=== PATIENT | female | born 1935 | race Two or more races ===

== ENCOUNTER 2017-09-21 16:40 | Inpatient (IN) | payer OTHER ==
[~2017-09-21] VITALS: Ht 157.5 cm; Wt 64.0 kg
--- NOTE | 2017-09-21 16:50 | NUR ---
BIB [facility] C/O SOB X 2 DAYS, WORSENING YESTERDAY. PATIENT GIVEN BREATHING TX EN ROUTE. A/OX 2, BREATHING EVEN AND UNLABORED ON 5L OXYGEN VIA NC. NO DISTRESS NOTED, SAFETY AND COMFORT MEASURES IN PLACE. AWAITING MD ORDERS.
--- NOTE | 2017-09-21 17:15 | NUR ---
SECOND IV STARTED ON LFA, 18G. BLOOD DRAWN AND SENT TO LAB.
[2017-09-21 17:29] LABS: BASOPHILS % (AUTO) 0.3 % (0.0-2.0); EOSINOPHILS % (AUTO) 0.2 % (0.0-6.0); HEMATOCRIT 30 % (33-45); HEMOGLOBIN 10.5 g/dL (11.5-14.8); LYMPHOCYTES # (AUTO) 0.7 /CMM (0.8-4.8); LYMPHOCYTES % (AUTO) 37.9 % (20.0-44.0); MEAN CORPUSCULAR HEMOGLOBIN 30 PG (26.0-33.0); MEAN CORPUSCULAR HGB CONC 36 g/dl (31.0-36.0); MEAN CORPUSCULAR VOLUME 85 fL (82-100); MONOCYTES % (AUTO) 1.4 % (2.0-12.0); NEUTROPHILS # (AUTO) 1.2 /CMM (1.8-8.9); NEUTROPHILS % (AUTO) 60.2 % (43.0-81.0); PLATELET COUNT (AUTO) 138 /CMM (150-450); RDW COEFFICIENT OF VARIATION 16.6 (11.5-15.0); RED BLOOD CELL COUNT(AUTO) 3.47 MIL/uL (4.0-5.2)
[2017-09-21] MEDS ORDERED: IV NS 0.9% 500 ML BAG IV ONE (17:30)
[2017-09-21] MEDS ORDERED: ASPIRIN 81 MG TAB.CHEW PO ONE (17:30)
[2017-09-21] MEDS ORDERED: NITROGLYCERIN 0.4 MG/TAB BOTTLE SL ONE (17:30)
[2017-09-21 17:34] LABS: WHITE BLOOD COUNT (AUTO) 1.9 K/uL (4.3-11.0)
[2017-09-21 17:38] LABS: CALCIUM, SERUM 9.2 mg/dL (8.5-10.1); CARBON DIOXIDE 28 mmol/L (21-32); CHLORIDE 105 mmol/L (98-107); CREATININE 1.1 mg/dL (0.6-1.3); GLUCOSE 207 mg/dL (74-106); POTASSIUM 4.3 mmol/L (3.5-5.1); SODIUM SERUM 139 mmol/L (136-145); UREA NITROGEN, BLOOD 29 mg/dL (7-18)
[2017-09-21] MEDS ORDERED: NITROGLYCERIN 0.4 MG/TAB BOTTLE ONE (17:42)
[2017-09-21] MEDS ORDERED: ASPIRIN 81 MG TAB.CHEW ONE (17:42)
[2017-09-21] MEDS ORDERED: ASPI-1169 PO (17:43)
[2017-09-21] MEDS ORDERED: ATEN50TA PO (17:43)
[2017-09-21 17:47] LABS: TROPONIN I 0.147 ng/mL (0.00-0.056)
[2017-09-21 17:51] LABS: ALANINE AMINOTRANSFERASE 27 U/L (12-78); ALKALINE PHOSPHATASE 85 U/L (46-116); ASPARTATE AMINOTRANSFERASE 28 U/L (15-37); B-TYPE NATRIURETIC PEPTIDE 12611 PG/ML (0-125); BILIRUBIN,DIRECT 0.5 mg/dL (0.0-0.2); TOTAL PROTEIN, SERUM 7.3 g/dL (6.4-8.2)
[2017-09-21 18:12] LABS: ABG BASE EXCESS 0.3 mmol/L; ABG PCO2 45.1 mmHg (35.0-45.0); ABG PH 7.374 (7.350-7.450); ABG PO2 65.7 mmHg (75.0-100.0); AaDO2 167.6 mmHg; COHb 0.9 % (0.5-1.5); MetHb 0.4 % (0.0-1.5); O2Hb 89.8 % (94.0-97.0); SITE, ABG Right Radial
--- NOTE | 2017-09-21 18:21 | NUR ---
CALLED NURSING SUP. FOR CHIQUI BED
[2017-09-21] MEDS ORDERED: ZOLPIDEM TARTRATE 5 MG TABLET PO PRN (18:30)
[2017-09-21] MEDS ORDERED: HYDROCODONE/APAP 5/325MG 1 EACH TABLET PO PRN (18:30)
[2017-09-21] MEDS ORDERED: MAGNESIUM HYDROXIDE 30 ML UDC PO PRN (18:30)
[2017-09-21] MEDS ORDERED: MORPHINE SULFATE INJ 2 MG/ML DISP.SYRIN IV PRN (18:30)
[2017-09-21] MEDS ORDERED: MAG HYDROX/AL HYDROX/SIMETH 30 ML UDC PO PRN (18:30)
[2017-09-21] MEDS ORDERED: FUROSEMIDE 20 MG/2 ML VIAL ONE (18:38)
[2017-09-21 18:44] LABS: BAND % (MANUAL) 6 % (0.0-5.0); LYMPHOCYTES % (MANUAL) 36 % (16-48); MONOCYTES % (MANUAL) 2 % (0-11.0); NEUTROPHILS % (MANUAL) 56 (42-76)
[2017-09-21] MEDS ORDERED: FUROSEMIDE 20 MG/2 ML VIAL IV ONE (19:00)
--- NOTE | 2017-09-21 19:16 | NUR ---
CHIQUI 120-2 FOR NSTEMI AND RESP. FAILURE, LAURENT HAM ADMITTING
--- NOTE | 2017-09-21 19:35 | NUR ---
REPORT GIVEN TO REESE IVERSON FOR AILEEN.
--- NOTE | 2017-09-21 20:45 | NUR ---
VETERINARIAN POULTRY NOTES RECEIVED PATIENT FROM ER VIA JANINE. PATIENT AWAKE, ALERT AND ORIENTED X2-3, SLOVENIAN SPEAKING, FAMILY AT BEDSIDE ABLE TO TRANSLATE MOZAMBICAN/SLOVENIAN. SLOVENIAN APEAKING STAFF ALSO AT BEDSIDE TO AID IN TRANSLATION. BREATHING IS EVEN AND SLIGHTLY LABORED WHILE O2 VIA NONREBREATHER MASK AT 3 LITERS. PATIENT SWITCHED TO NASAL CANNULA AT 5 LITERS DISCUSSED IN REPORT FROM ER NURSE [place], WITH NOTED IMPROVEMENT IN RESPIRATORY STATUS. PLACED ON TELEMETRY MONITORING, REVEALING SINUS RHYTHM, HR = 60BPM AT THIS TIME, SOMETIMES NICOLASA TO 56. IV SITES PATENT AND INTACT, FLUSHED WITH NS, FREE FROM ANY S/S OF INFILTRATION OR PHLEBITIS. SKIN ASSESSED AND DOCUMENTED PER PROTOCOL. DISCUSSED PLAN OF CARE WITH THE PATIENT AND FAMILY MEMBERS, BOTH VERBALIZING UNDERSTANDING. CALL LIGHT WITHIN EASY REACH, BED IN LOWEST AND LOCKED POSITION. WILL CONTINUE TO CLOSELY MONITOR
[2017-09-21 20:56] VITALS: BP 174/95
--- NOTE | 2017-09-21 21:26 | NUR ---
1950 NED HAM CALLED AND GAVE ORDERS FOR ASPIRIN 81MG AND NITROGLYCERIN .4MG FOR PATIENT. ORDER NOTED AND CARRIED OUT.
[2017-09-21 21:30] VITALS: BP 157/78
[2017-09-21] MEDS ORDERED: NITROGLYCERIN 0.4 MG/TAB BOTTLE SL PRN (21:30)
[2017-09-21] MEDS ORDERED: DEXTROSE 50%-WATER 50 ML DISP.SYRIN IV PRN (23:30)
[2017-09-21] MEDS ORDERED: *INSULIN REGULAR(HUMULIN R)HUM 100 UNIT/ML VIAL SQ PRN (23:30)
[2017-09-21] MEDS ORDERED: hydrALAZINE HCL IV 20 MG VIAL IV PRN (23:30)
--- NOTE | 2017-09-21 23:35 | NUR ---
0017 NED HAM CALLED WITH ORDERS TO COLLECT URINE FOR U/A AND C/S, AND TO FOLLOW UP ON STAT PRO CALCITONIN ORDER. ZAYRA DOS SANTOS NOTIFIED
[2017-09-22] VITALS (7 sets, daily range): BP systolic 117–160; BP diastolic 58–70
--- NOTE | 2017-09-22 00:15 | NUR ---
RN NOTES RECEIVED CALL FROM LAURENT CAMP COOK REGARDING CXR RESULTS. RESULTS RELAYED. LAURENT ALSO MADE AWARE OF LATEST TROPONIN RESULT OF 0.221, TRENDING UP. NO NEW ORDERS RECEIVED AT THIS TIME
[2017-09-22] MEDS: AZITHROMYCIN 500 MG in IV D5W 250 ML IV SCH (00:30)
[2017-09-22] MEDS ORDERED: CEFTRIAXONE 1 G VIAL ONE (00:49)
--- NOTE | 2017-09-22 01:00 | NUR ---
RN NOTES NOTED WITH NEW ORDERS FOR IV ATB. CHARGE NURSE ORQUIDEA ABLE TO OVERRIDE ROCEPHIN, BUT ZITHROMAX UNAVAILABLE. ORDER FAXED TO CLIMATE CHANGE RISK ASSESSOR KAROL, WAITING FOR DELIVERY. WILL ADMINISTER WHEN DRUG AVAILABLE
[2017-09-22] MEDS: CEFTRIAXONE 1 G in IV D5W 50 ML IV SCH ×2 (01:05→23:53)
[2017-09-22] MEDS ORDERED: AZITHROMYCIN 500 MG VIAL ONE (01:46)
[2017-09-22 06:54] LABS: BASOPHILS % (AUTO) 0.7 % (0.0-2.0); CARBON DIOXIDE 30 mmol/L (21-32); CHLORIDE 105 mmol/L (98-107); CREATININE 1.2 mg/dL (0.6-1.3); EOSINOPHILS % (AUTO) 0.5 % (0.0-6.0); GLUCOSE 165 mg/dL (74-106); HEMATOCRIT 30 % (33-45); HEMOGLOBIN 10.5 g/dL (11.5-14.8); LYMPHOCYTES # (AUTO) 0.9 /CMM (0.8-4.8); MAGNESIUM 2.1 mg/dL (1.8-2.4); MEAN CORPUSCULAR HEMOGLOBIN 30 PG (26.0-33.0); MEAN CORPUSCULAR HGB CONC 35 g/dl (31.0-36.0); MEAN CORPUSCULAR VOLUME 87 fL (82-100); MONOCYTES % (AUTO) 1.9 % (2.0-12.0); NEUTROPHILS # (AUTO) 1.1 /CMM (1.8-8.9); NEUTROPHILS % (AUTO) 51.9 % (43.0-81.0); PHOSPHORUS 3.9 mg/dL (2.5-4.9); PLATELET COUNT (AUTO) 135 /CMM (150-450); RDW COEFFICIENT OF VARIATION 17.1 (11.5-15.0); RED BLOOD CELL COUNT(AUTO) 3.49 MIL/uL (4.0-5.2); SODIUM SERUM 141 mmol/L (136-145); UREA NITROGEN, BLOOD 28 mg/dL (7-18); WHITE BLOOD COUNT (AUTO) 2.1 K/uL (4.3-11.0)
--- NOTE | 2017-09-22 07:00 | NUR ---
RN CLOSING NOTES PATIENT RESTING COMFORTABLY IN BED. FOELY CATHETER REMAINS IN PLACE, DRAINING CLEAR URINE TO GRAVITY. WILL ENDORSE THE PATIENT TO THE AM SHIFT NURSE FOR CONTINUITY OF CARE
[2017-09-22 07:04] LABS: CHOLESTEROL 152 mg/dL (<200); HDL CHOLESTEROL 39 mg/dL (40-60); LDL 97 mg/dL (0-99); TRIGLYCERIDES 115 mg/dL (30-150)
--- NOTE | 2017-09-22 07:15 | NUR ---
RN INITIAL NOTES: REC'D PT AWAKE ON BED, NOT IN ANY DISTRESS, A/O X 2-3, DIVEHI SPEAKING. ON NC/5LPM, NO SOB. ON TELEMONITOR, SR 61 BPM. HAS 2 IV LINE ACCESS: LFA G28 & R HAND G20, SL, BOTH PATENT & INTACT, NO S/SX OF INFECTION/INFILTRATION NOTED. HAS FC DRAINING TO BSB W/ YELLOWISH URINE OUTPUT. PROVIDED COMFORT & SAFETY MEASURES. BED KEPT LOW & IN LOCKED POS. CALL LIGHT PLACED W/IN REACH. WILL CONT TO MONITOR & ATTEND PT NEEDS.
[2017-09-22] MEDS: PANTOPRAZOLE 40 MG TABLET.DR PO SCH (08:20)
[2017-09-22] MEDS: ASPIRIN 81 MG TAB.CHEW PO SCH (08:21)
[2017-09-22] MEDS: CARVEDILOL 3.125 MG TABLET PO SCH ×2 (08:22→21:18)
[2017-09-22] MEDS: FUROSEMIDE 40 MG/4 ML VIAL IV SCH ×2 (08:23→12:30)
[2017-09-22] MEDS: VALSARTAN 80 MG TABLET PO SCH (08:24)
[2017-09-22] MEDS: ENOXAPARIN SODIUM 30 MG/0.3 ML DISP.SYRIN SQ SCH (08:24)
[2017-09-22] MEDS: BLOOD SUGAR DIAGNOSTIC 1 EACH STRIP IN SCH ×4 (08:28→21:18)
[2017-09-22] MEDS: INSULIN REGULAR, HUMAN 100 UNIT/ML 3 ML VIAL SQ PRN ×3 (08:31→17:21)
[2017-09-22 08:57] LABS: THYROID STIMULATING HORMONE 38.978 uIU/mL (0.358-3.74)
[2017-09-22] MEDS ORDERED: HEPARIN SODIUM, PORCINE 5000 UNITS/1 ML VIAL SQ SCH (09:00)
[2017-09-22] MEDS ORDERED: ASPIRIN 81 MG TAB.CHEW PO SCH (09:00)
[2017-09-22 15:20] LABS: APPEARANCE,URINE CLEAR (CLEAR); BILIRUBIN,URINE NEGATIVE (NEGATIVE); BLOOD, URINE 2+ Ery/uL (NEGATIVE); COLOR,URINE YELLOW (YELLOW); KETONES,URINE NEGATIVE (NEGATIVE); LEUKOCYTE ESTERASE ,URINE NEGATIVE (NEGATIVE); NITRITE, URINE NEGATIVE (NEGATIVE); PH,URINE 5.5 (5.0-8.0); PROTEIN,URINE NEGATIVE (NEGATIVE); UGLUCOSE NEGATIVE (NEGATIVE); UROBILINOGEN,URINE 0.2 EU/dL (0.2)
[2017-09-22 15:27] LABS: BACTERIA,URINE Rare /HPF (None Seen); SQUAMOUS EPITHELIAL CELL,UR Rare /HPF (None Seen); WBC,URINE 0-2 /HPF (0-3)
[2017-09-22] MEDS ORDERED: FUROSEMIDE 40 MG/4 ML VIAL IV SCH (17:30)
--- NOTE | 2017-09-22 18:36 | NUR ---
RN CLOSING NOTES: NO ACUTE CHANGES NOTED W/IN SHIFT. PT TOLERATED NC/2LPM, NO SOB. ON TELEMONITOR, STILL SR/SB. 2 IV LINE ACCESS: LFA G28 & R HAND G20, SL, BOTH KEPT PATENT & INTACT, NO S/SX OF INFECTION/INFILTRATION NOTED. FC KEPT PATENT & INTACT DRAINING TO BSB. KEPT WELL RESTED. NEEDS ATTENDED. BED KEPT LOW & IN LOCKED POS. CALL LIGHT PLACED W/IN REACH. WILL ENDORSE TO PM RN FOR AILEEN.
--- NOTE | 2017-09-22 19:15 | NUR ---
NAVAL ARCHITECT SPECIALIST NOTE RECEIVED PT AOX2-3 SPEECH CLEAR, GUATEMALAN SPEAKING, SON AT BEDSIDE, ON TELE SR, NO S/SX OF CARDIAC OR RESPIRATORY DISTRESS, ON 2L NC, F/C DRAINING TO GRAVITY. LFA #18G AND R HAND #20G SL, BOTH SITES PATENT FLUSHING WELL, SITES CDI. SKIN KEPT CLEAN AND DRY. SAFETY MAINTAINED AT ALL TIMES, BED IN LOCKED, LOW POSITION, CALL LIGHT WITHIN REACH, WILL CONTINUE TO MONITOR FOR ANY CHANGES IN CONDITION.
[2017-09-22] MEDS: LEVOTHYROXINE SODIUM 25 MCG TABLET PO SCH (19:24)
--- NOTE | 2017-09-22 19:40 | NUR ---
BEATER HEAD NOTE PT PICKED UP FOR CT SCAN W/O CONTRAST
--- NOTE | 2017-09-22 19:51 | NUR ---
STUDENT ACTIVITIES DIRECTOR NOTE PT BACK FROM CT SCAN, NO S/SX OF ACUTE DISTRESS, RESTING COMFORTABLY IN BED.
[2017-09-22] MEDS: ATORVASTATIN 10 MG TABLET PO SCH (21:17)
[2017-09-23] VITALS: BP 118/64
[2017-09-23] MEDS: AZITHROMYCIN 500 MG in IV D5W 250 ML IV SCH (00:34)
[2017-09-23 04:00] VITALS: BP 152/67
[2017-09-23 06:11] LABS: BASOPHILS % (AUTO) 0.2 % (0.0-2.0); EOSINOPHILS % (AUTO) 1.5 % (0.0-6.0); HEMATOCRIT 31 % (33-45); HEMOGLOBIN 10.6 g/dL (11.5-14.8); LYMPHOCYTES # (AUTO) 1.1 /CMM (0.8-4.8); LYMPHOCYTES % (AUTO) 56.1 % (20.0-44.0); MEAN CORPUSCULAR HEMOGLOBIN 30 PG (26.0-33.0); MEAN CORPUSCULAR HGB CONC 35 g/dl (31.0-36.0); MEAN CORPUSCULAR VOLUME 87 fL (82-100); MONOCYTES % (AUTO) 1.7 % (2.0-12.0); NEUTROPHILS # (AUTO) 0.8 /CMM (1.8-8.9); NEUTROPHILS % (AUTO) 40.5 % (43.0-81.0); PLATELET COUNT (AUTO) 131 /CMM (150-450); RDW COEFFICIENT OF VARIATION 17.5 (11.5-15.0); RED BLOOD CELL COUNT(AUTO) 3.55 MIL/uL (4.0-5.2)
[2017-09-23 06:22] LABS: WHITE BLOOD COUNT (AUTO) 1.9 K/uL (4.3-11.0)
--- NOTE | 2017-09-23 06:23 | NUR ---
RN NOTE RECEIVED CALL FROM LAB CRITICAL LAB VALUE WBC 1.9, NOTIFIED PRIMARY NURSE PHILLIP
--- NOTE | 2017-09-23 06:25 | NUR ---
BUDGET REPORT CLERK NOTE CALL TO DR LARIOS TO REPORT CRITICAL LAB AWAITING CALL BACK
[2017-09-23 06:31] LABS: ALANINE AMINOTRANSFERASE 20 U/L (12-78); ALBUMIN 3.4 g/dL (3.4-5.0); ALKALINE PHOSPHATASE 68 U/L (46-116); ASPARTATE AMINOTRANSFERASE 15 U/L (15-37); BILIRUBIN,TOTAL 1.3 mg/dL (0.2-1.0); CALCIUM, SERUM 8.7 mg/dL (8.5-10.1); CARBON DIOXIDE 31 mmol/L (21-32); CHLORIDE 101 mmol/L (98-107); CREATININE 1.2 mg/dL (0.6-1.3); GLUCOSE 135 mg/dL (74-106); MAGNESIUM 1.9 mg/dL (1.8-2.4); PHOSPHORUS 3.7 mg/dL (2.5-4.9); POTASSIUM 3.6 mmol/L (3.5-5.1); SODIUM SERUM 141 mmol/L (136-145); TOTAL PROTEIN, SERUM 6.8 g/dL (6.4-8.2); UREA NITROGEN, BLOOD 31 mg/dL (7-18)
[2017-09-23 06:45] LABS: C-REACTIVE PROTEIN 3.8 mg/dL (0.0-0.9)
--- NOTE | 2017-09-23 06:55 | NUR ---
LEADED GLASS INSTALLER NOTE CALL BACK FROM DR LARIOS, NO NEW ORDERS FOR PATIENT
--- NOTE | 2017-09-23 07:20 | NUR ---
VENDING MACHINE COIN COLLECTOR OPENING NOTES: PT AWAKE ON BED, NOT IN ANY DISTRESS, A/O X 2-3, ARABIC SPEAKING. ON NC/2LPM, NO SOB. ON TELEMONITOR, SR 68 BPM. HAS 2 IV LINE ACCESS: LFA G28 & R HAND G20, SL, BOTH PATENT & INTACT, NO S/SX OF INFECTION/INFILTRATION NOTED. HAS FC DRAINING CLEAR YELLOW URINE .BED IS IN LOW & IN LOCKED POS.SRX3. CALL LIGHT PLACED W/IN REACH. WILL CONTINUE TO MONITOR.
[2017-09-23 08:00] VITALS: BP 140/68
[2017-09-23] MEDS: BLOOD SUGAR DIAGNOSTIC 1 EACH STRIP IN SCH ×4 (08:08→22:16)
[2017-09-23] MEDS: VALSARTAN 80 MG TABLET PO SCH (08:24)
[2017-09-23] MEDS: LEVOTHYROXINE SODIUM 25 MCG TABLET PO SCH (08:26)
[2017-09-23] MEDS: PANTOPRAZOLE 40 MG TABLET.DR PO SCH (08:26)
[2017-09-23 08:27] LABS: BAND % (MANUAL) 2 % (0.0-5.0); EOSINOPHILS % (MANUAL) 4 % (0-4); LYMPHOCYTES % (MANUAL) 55 % (16-48); MONOCYTES % (MANUAL) 3 % (0-11.0); NEUTROPHILS % (MANUAL) 34 (42-76); REACTIVE LYMPHOCYTES 2 % (0-0)
[2017-09-23] MEDS: ASPIRIN 81 MG TAB.CHEW PO SCH (08:27)
[2017-09-23] MEDS: CARVEDILOL 3.125 MG TABLET PO SCH ×2 (08:27→21:59)
[2017-09-23 08:30] VITALS: BP 140/68
[2017-09-23] MEDS: ENOXAPARIN SODIUM 30 MG/0.3 ML DISP.SYRIN SQ SCH (08:30)
[2017-09-23] MEDS: INSULIN REGULAR, HUMAN 100 UNIT/ML 3 ML VIAL SQ PRN ×4 (08:36→22:22)
[2017-09-23] MEDS ORDERED: BUMETANIDE INJ 8 MG in IV NS 0.9% 48 ML IV ONE (09:00)
--- NOTE | 2017-09-23 15:51 | NUR ---
RN NOTES SEEN BY NED BERMNA ,MADE AWARE ABOUT ALL THE ABNORMAL LABS.SHE SAID ONCOLOGY WILL FOLLOW UP.SON WAS AT THE BEDSIDE WANT TO TALK TO MADE AWARE.TALKED TO THE FAMILY WITH THE HELP OF THE TRANSISTOR.ANSWERED ALL THE QUESTIONS.PT WORK WITH PATIENT ABLE TO WALK WITH WALKER.NEED STANDBY ASSISTANCE.
[2017-09-23 16:00] VITALS: BP 135/62
[2017-09-23] MEDS ORDERED: LACTOBACILLUS RHAMNOSUS GG 1 EACH CAP.SPRINK PO SCH (17:00)
--- NOTE | 2017-09-23 19:20 | NUR ---
TWO WAY RADIO INSTALLER NOTE RECEIVED PT AOX2-3 SPEECH CLEAR, GUINEAN SPEAKING, NO S/SX OF CARDIAC OR RESPIRATORY DISTRESS, ON 2L NC, F/C DRAINING TO GRAVITY. LFA #18G AND R HAND #20G SL, BOTH SITES PATENT FLUSHING WELL, SITES CDI. SKIN KEPT CLEAN AND DRY. SAFETY MAINTAINED AT ALL TIMES, BED IN LOCKED, LOW POSITION, CALL LIGHT WITHIN REACH, WILL CONTINUE TO MONITOR FOR ANY CHANGES IN CONDITION.
--- NOTE | 2017-09-23 19:20 | NUR ---
CONTINUOUS DRYOUT OPERATOR HELPER SHIFT END NOTES: PT AWAKE ON BED, NOT IN ANY DISTRESS, A/O X 2-3, CZECH SPEAKING. ON NC/2LPM, NO SOB. ON TELEMONITOR, SR 64 BPM. HAS 2 IV LINE ACCESS: LFA G28 & R HAND G20, SL, BOTH PATENT & INTACT, NO S/SX OF INFECTION/INFILTRATION NOTED. HAS FC DRAINING CLEAR YELLOW URINE .BED IS IN LOW & IN LOCKED POS.SRX3. CALL LIGHT PLACED W/IN REACH.ONCOLOGY WILL FOLLOW UP FOR ABNORMAL LABS.ENDORSED TO PM NURSE FOR AILEEN.
[2017-09-23 20:00] VITALS: BP 160/68
[2017-09-23] MEDS: ATORVASTATIN 10 MG TABLET PO SCH (21:59)
[2017-09-23] MEDS: AZITHROMYCIN 250 MG TABLET PO SCH (21:59)
[2017-09-24] MEDS: CEFTRIAXONE 1 G in IV D5W 50 ML IV SCH (00:04)
[2017-09-24 07:03] LABS: ALANINE AMINOTRANSFERASE 17 U/L (12-78); ALBUMIN 3.4 g/dL (3.4-5.0); ALKALINE PHOSPHATASE 72 U/L (46-116); ASPARTATE AMINOTRANSFERASE 14 U/L (15-37); BILIRUBIN,TOTAL 1.2 mg/dL (0.2-1.0); CALCIUM, SERUM 8.9 mg/dL (8.5-10.1); CARBON DIOXIDE 35 mmol/L (21-32); CHLORIDE 99 mmol/L (98-107); CREATININE 1.2 mg/dL (0.6-1.3); GLUCOSE 133 mg/dL (74-106); MAGNESIUM 1.8 mg/dL (1.8-2.4); PHOSPHORUS 4.1 mg/dL (2.5-4.9); POTASSIUM 3.5 mmol/L (3.5-5.1); SODIUM SERUM 141 mmol/L (136-145); UREA NITROGEN, BLOOD 35 mg/dL (7-18)
--- NOTE | 2017-09-24 07:30 | NUR ---
MS RN AM NOTE RECEIVED PT AOX2-3 SPEECH CLEAR, LATVIAN SPEAKING, NO S/SX OF CARDIAC OR RESPIRATORY DISTRESS, ON 2L NC, F/C DRAINING TO GRAVITY. LFA #18G AND R HAND #20G SL, BOTH SITES PATENT FLUSHING WELL, SITES CDI. SKIN KEPT CLEAN AND DRY. SAFETY MAINTAINED AT ALL TIMES, BED IN LOCKED, LOW POSITION, CALL LIGHT WITHIN REACH, WILL CONTINUE TO MONITOR FOR ANY CHANGES IN CONDITION.
[2017-09-24 07:45] LABS: BASOPHILS % (AUTO) 1.2 % (0.0-2.0); HEMATOCRIT 33 % (33-45); HEMOGLOBIN 11.5 g/dL (11.5-14.8); LYMPHOCYTES # (AUTO) 1.2 /CMM (0.8-4.8); LYMPHOCYTES % (AUTO) 59.5 % (20.0-44.0); MEAN CORPUSCULAR HEMOGLOBIN 30 PG (26.0-33.0); MEAN CORPUSCULAR HGB CONC 35 g/dl (31.0-36.0); MEAN CORPUSCULAR VOLUME 85 fL (82-100); MONOCYTES % (AUTO) 2.2 % (2.0-12.0); NEUTROPHILS # (AUTO) 0.6 /CMM (1.8-8.9); NEUTROPHILS % (AUTO) 34.1 % (43.0-81.0); PLATELET COUNT (AUTO) 136 /CMM (150-450); RDW COEFFICIENT OF VARIATION 16.1 (11.5-15.0); RED BLOOD CELL COUNT(AUTO) 3.87 MIL/uL (4.0-5.2)
[2017-09-24 08:00] VITALS: BP 152/65
[2017-09-24] MEDS ORDERED: LIDOCAINE 1% INJ 50 ML MDV IJ ONE (08:00)
[2017-09-24 08:09] LABS: IMMUNOGLOBULIN A, SERUM 133 mg/dL (64-422); IMMUNOGLOBULIN G, SERUM 867 mg/dL (700-1600); IMMUNOGLOBULIN M, SERUM 65 mg/dL (26-217)
[2017-09-24 08:19] LABS: WHITE BLOOD COUNT (AUTO) 1.9 K/uL (4.3-11.0)
[2017-09-24] MEDS: ENOXAPARIN SODIUM 30 MG/0.3 ML DISP.SYRIN SQ SCH (09:00)
[2017-09-24] MEDS: BLOOD SUGAR DIAGNOSTIC 1 EACH STRIP IN SCH ×4 (09:07→21:18)
[2017-09-24] MEDS: ASPIRIN 81 MG TAB.CHEW PO SCH (09:08)
[2017-09-24] MEDS: CARVEDILOL 3.125 MG TABLET PO SCH ×2 (09:08→21:18)
[2017-09-24] MEDS: VALSARTAN 80 MG TABLET PO SCH (09:08)
[2017-09-24] MEDS: PANTOPRAZOLE 40 MG TABLET.DR PO SCH (09:08)
[2017-09-24] MEDS: LEVOTHYROXINE SODIUM 75 MCG TABLET PO SCH (09:08)
--- NOTE | 2017-09-24 09:14 | NUR ---
MS RN NOTES ACCUCHECK. BS 187 MG/DL. 4 UNITS HUM R GIVEN PER SS.
[2017-09-24] MEDS: INSULIN REGULAR, HUMAN 100 UNIT/ML 3 ML VIAL SQ PRN ×3 (09:17→16:56)
--- NOTE | 2017-09-24 09:30 | NUR ---
MS RN NOTES DUE MEDS GIVEN
[2017-09-24 10:32] LABS: BAND % (MANUAL) 1 % (0.0-5.0); EOSINOPHILS % (MANUAL) 2 % (0-4); LYMPHOCYTES % (MANUAL) 57 % (16-48); MONOCYTES % (MANUAL) 6 % (0-11.0); NEUTROPHILS % (MANUAL) 34 (42-76)
[2017-09-24] MEDS: POTASSIUM CHLORIDE 20 MEQ TAB.PRT.SR PO SCH ×3 (10:55→13:23)
[2017-09-24] MEDS: FUROSEMIDE 100 MG/10 ML VIAL IV SCH ×3 (10:55→17:25)
[2017-09-24 12:26] LABS: INR 0.98 (0.87-1.13)
[2017-09-24] MEDS: CYANOCOBALAMIN 1,000 MCG/ML VIAL IM SCH (12:29)
--- NOTE | 2017-09-24 12:36 | NUR ---
MS RN NOTES ACCUCHECK. BS 192 MG/DL. 4 UNITS HUM R GIVEN PER SS.
--- NOTE | 2017-09-24 14:34 | NUR ---
MS RN NOTES US TECH AND FAMILY AT BEDSIDE. CONSENT SIGNED FOR US GUIDED THORACENTESIS LEFT.
--- NOTE | 2017-09-24 15:28 | NUR ---
MELONY RN NOTES S/P US GUDED THORACENTESIS, LEFT, 600 ML OUT STAT CXR ORDERED
[2017-09-24 16:00] VITALS: BP 100/59
--- NOTE | 2017-09-24 16:50 | NUR ---
MS RN NOTES ACCUCHECK. BS 177 MG/DL. 4 UNITS HUM R GIVEN PER SS.
--- NOTE | 2017-09-24 18:43 | NUR ---
MS RN CLOSING NOTE PT RESTING IN BED, AOX2-3 SPEECH CLEAR, SYRIAC SPEAKING, NO S/SX OF CARDIAC OR RESPIRATORY DISTRESS, ON 2L NC, F/C DRAINING TO GRAVITY WITH 400 ML OUTPUT. LFA #18G AND R HAND #20G SL, BOTH SITES PATENT FLUSHING WELL, SITES CDI. SKIN KEPT CLEAN AND DRY. SAFETY MAINTAINED AT ALL TIMES, BED IN LOCKED, LOW POSITION, CALL LIGHT WITHIN REACH, ALL NEEDS MET AT THIS TIME. S/P US GUIDED THORACENTESIS, SITE CLEAR.NO BLEEDING. NO OTHER SIGNIFICANT CHANGE IN CONDITION. WILL ENDORSE TO NEXT SHIFT FOR AILEEN.
--- NOTE | 2017-09-24 19:15 | NUR ---
ASSISTANT PROFESSOR OF ARCHAEOLOGY NOTE RECEIVED PT AOX2-3 SPEECH CLEAR, GEORGIAN SPEAKING, SON AT BEDSIDE, NO S/SX OF CARDIAC OR RESPIRATORY DISTRESS, ON 2L NC, F/C DRAINING TO GRAVITY. LFA #18G AND R HAND #20G SL, BOTH SITES PATENT FLUSHING WELL, SITES CDI. SKIN KEPT CLEAN AND DRY. SAFETY MAINTAINED AT ALL TIMES, BED IN LOCKED, LOW POSITION, CALL LIGHT WITHIN REACH, WILL CONTINUE TO MONITOR FOR ANY CHANGES IN CONDITION.
[2017-09-24] MEDS: ACETAMINOPHEN 325 MG TABLET PO PRN (19:48)
[2017-09-24 20:00] VITALS: BP 111/52
[2017-09-24] MEDS: ATORVASTATIN 10 MG TABLET PO SCH (21:17)
[2017-09-24] MEDS: AZITHROMYCIN 250 MG TABLET PO SCH (21:17)
[2017-09-25] MEDS: CEFTRIAXONE 1 G in IV D5W 50 ML IV SCH ×2 (00:11→23:30)
[2017-09-25 04:00] VITALS: BP 104/54
[2017-09-25 07:05] LABS: BASOPHILS % (AUTO) 0.3 % (0.0-2.0); EOSINOPHILS % (AUTO) 0.8 % (0.0-6.0); HEMATOCRIT 39 % (33-45); HEMOGLOBIN 13.3 g/dL (11.5-14.8); LYMPHOCYTES % (AUTO) 64.2 % (20.0-44.0); MEAN CORPUSCULAR HEMOGLOBIN 29 PG (26.0-33.0); MEAN CORPUSCULAR HGB CONC 34 g/dl (31.0-36.0); MEAN CORPUSCULAR VOLUME 86 fL (82-100); MONOCYTES # (AUTO) 0.1 /CMM (0.1-1.30); MONOCYTES % (AUTO) 1.8 % (2.0-12.0); NEUTROPHILS # (AUTO) 1.1 /CMM (1.8-8.9); NEUTROPHILS % (AUTO) 32.9 % (43.0-81.0); PLATELET COUNT (AUTO) 174 /CMM (150-450); RDW COEFFICIENT OF VARIATION 17.1 (11.5-15.0); RED BLOOD CELL COUNT(AUTO) 4.58 MIL/uL (4.0-5.2); WHITE BLOOD COUNT (AUTO) 3.2 K/uL (4.3-11.0)
[2017-09-25 07:17] LABS: ALANINE AMINOTRANSFERASE 15 U/L (12-78); ALBUMIN 3.3 g/dL (3.4-5.0); ALKALINE PHOSPHATASE 81 U/L (46-116); ASPARTATE AMINOTRANSFERASE 21 U/L (15-37); BILIRUBIN,TOTAL 1.3 mg/dL (0.2-1.0); CALCIUM, SERUM 8.8 mg/dL (8.5-10.1); CARBON DIOXIDE 30 mmol/L (21-32); CHLORIDE 99 mmol/L (98-107); GLUCOSE 190 mg/dL (74-106); MAGNESIUM 1.9 mg/dL (1.8-2.4); PHOSPHORUS 3.9 mg/dL (2.5-4.9); POTASSIUM 4.4 mmol/L (3.5-5.1); SODIUM SERUM 138 mmol/L (136-145); TOTAL PROTEIN, SERUM 6.9 g/dL (6.4-8.2); UREA NITROGEN, BLOOD 50 mg/dL (7-18)
--- NOTE | 2017-09-25 07:30 | NUR ---
MS RN AM NOTE RECEIVED PT AOX2-3 SPEECH CLEAR, GEORGIAN SPEAKING, NO S/SX OF CARDIAC OR RESPIRATORY DISTRESS, ON RA, LFA #18G AND R HAND #20G SL, BOTH SITES PATENT FLUSHING WELL, SITES CDI. F/C DRAINING TO GRAVITY.PLS SEE NURSING FLOWSHEET FOR SKIN ISSUES. WILL ASSIST IN TURNING AND REPOSITIONING Q 2 HOURS. PHYSICAL THERAPY TODAY. SKIN KEPT CLEAN AND DRY. SAFETY MAINTAINED AT ALL TIMES, BED IN LOCKED, LOW POSITION, CALL LIGHT WITHIN REACH, WILL CONTINUE TO MONITOR FOR ANY CHANGES IN CONDITION.
--- NOTE | 2017-09-25 07:58 | NUR ---
MS RN NOTES ACCUCHECK. BS 195 MG/DL. 4 UNITS HUM R GIVEN PER SS.
[2017-09-25 08:00] VITALS: BP 142/89
[2017-09-25 08:10] LABS: *SPE A/G RATIO 1.2 (0.7-1.7); *SPE ALBUMIN 3.3 g/dL (2.9-4.4); *SPE ALPHA-1-GLOBULIN 0.2 g/dL (0.0-0.4); *SPE ALPHA-2-GLOBULIN 0.8 g/dL (0.4-1.0); *SPE BETA GLOBULIN 0.8 g/dL (0.7-1.3); *SPE GLOBULIN, TOTAL 2.7 g/dL (2.2-3.9); *SPE M-SPIKE Not Observed g/dL (Not Observed); *SPEGAMMA GLOBULIN 0.9 g/dL (0.4-1.8)
[2017-09-25] MEDS: INSULIN REGULAR, HUMAN 100 UNIT/ML 3 ML VIAL SQ PRN ×3 (08:22→21:28)
[2017-09-25] MEDS: CYANOCOBALAMIN 1,000 MCG/ML VIAL IM SCH (08:23)
[2017-09-25] MEDS: ASPIRIN 81 MG TAB.CHEW PO SCH (08:25)
[2017-09-25] MEDS: LEVOTHYROXINE SODIUM 75 MCG TABLET PO SCH (08:25)
[2017-09-25] MEDS: PANTOPRAZOLE 40 MG TABLET.DR PO SCH (08:25)
[2017-09-25] MEDS: VALSARTAN 80 MG TABLET PO SCH (08:28)
[2017-09-25] MEDS: CARVEDILOL 3.125 MG TABLET PO SCH ×2 (08:29→21:17)
[2017-09-25] MEDS: BLOOD SUGAR DIAGNOSTIC 1 EACH STRIP IN SCH ×4 (08:29→21:27)
[2017-09-25] MEDS: ENOXAPARIN SODIUM 30 MG/0.3 ML DISP.SYRIN SQ SCH (08:34)
--- NOTE | 2017-09-25 09:30 | NUR ---
MS RN NOTES DUE MEDS GIVEN
[2017-09-25] MEDS: NITROGLYCERIN 30 GM TUBE TP SCH ×2 (10:11→21:16)
--- NOTE | 2017-09-25 11:22 | NUR ---
MS RN NOTES ACCUCHECK. BS 124 MG/DL. NO INSULIN COVERAGE.
[2017-09-25 12:00] VITALS: BP 127/51
[2017-09-25 16:00] VITALS: BP 127/51
--- NOTE | 2017-09-25 16:33 | NUR ---
MS RN NOTES ACCUCHECK. BS 202 MG/DL. 8 UNITS HUM R GIVEN PER SS.
--- NOTE | 2017-09-25 18:32 | NUR ---
MS RN CLOSING NOTE PT RESTING IN BED, AOX2-3 SPEECH CLEAR, CHADIAN SPEAKING, NO S/SX OF CARDIAC OR RESPIRATORY DISTRESS, ON RA. F/C DRAINING TO GRAVITY WITH 300 ML OUTPUT. LFA #18G AND R HAND #20G SL, BOTH SITES PATENT FLUSHING WELL, SITES CDI. SKIN KEPT CLEAN AND DRY. SAFETY MAINTAINED AT ALL TIMES, BED IN LOCKED, LOW POSITION, CALL LIGHT WITHIN REACH, ALL NEEDS MET AT THIS TIME. NO OTHER SIGNIFICANT CHANGE IN CONDITION. PM CARE DONE. WILL ENDORSE TO NEXT SHIFT FOR AILEEN.
--- NOTE | 2017-09-25 19:23 | NUR ---
MS RN NOTES RECEIVED PT ON. A/0X2 MACANESE SPEAKING. ON ROOM AIR SATURATING WELL. NO RESPIRATORY DISTRESS NOTED AT THIS TIME. ON F/C DRAINING WELL. IV ACCESS ON LFA G#18 AND RIGHT HAND #20G SALINE LOCK. PATENT AND INTACT. NO REDNESS OR PAIN. HEAD OF BED ELEVATED. BED ALARM ON. SIDE RAILS UP. CALL LIGHT WITHIN REACH. WILL CONTINUE TO MONITOR PT CLOSELY.
[2017-09-25 20:00] VITALS: BP 111/67
[2017-09-25] MEDS: AZITHROMYCIN 250 MG TABLET PO SCH (21:16)
[2017-09-25] MEDS: ATORVASTATIN 10 MG TABLET PO SCH (21:17)
[2017-09-26] VITALS (34 sets, daily range): BP systolic 65–143; BP diastolic 29–99
--- NOTE | 2017-09-26 06:42 | NUR ---
MS RN NOTES NO ACUTE CHANGES NOTED DURING THE SHIFT. PROVIDED COMFORT AND SAFETY. DUE MEDS GIVEN. WILL ENDORSE TO THE AM NURSE FOR AILEEN.
--- NOTE | 2017-09-26 07:00 | NUR ---
MS RN OPENING NOTES RECEIVED REPORT FROM PM RN. A/0X2 MOLDOVAN SPEAKING. ON ROOM AIR SATURATING WELL. NO RESPIRATORY DISTRESS NOTED AT THIS TIME. ON F/C DRAINING CLEAR YELLOW URINE. IV ACCESS ON LFA G#18 AND RIGHT HAND #20G SALINE LOCK. PATENT AND INTACT. NO REDNESS OR PAIN. HEAD OF BED ELEVATED. BED ALARM ON. SIDE RAILS UP. CALL LIGHT WITHIN REACH. BED IS LOCKED AND IN LOW POSITION.WILL CONTINUE TO MONITOR .
[2017-09-26 07:33] LABS: BASOPHILS % (AUTO) 0.9 % (0.0-2.0); EOSINOPHILS % (AUTO) 2.2 % (0.0-6.0); HEMATOCRIT 38 % (33-45); HEMOGLOBIN 12.7 g/dL (11.5-14.8); LYMPHOCYTES # (AUTO) 1.7 /CMM (0.8-4.8); MEAN CORPUSCULAR HEMOGLOBIN 28 PG (26.0-33.0); MEAN CORPUSCULAR HGB CONC 34 g/dl (31.0-36.0); MEAN CORPUSCULAR VOLUME 85 fL (82-100); MONOCYTES # (AUTO) 0.1 /CMM (0.1-1.30); MONOCYTES % (AUTO) 2.4 % (2.0-12.0); NEUTROPHILS % (AUTO) 33.5 % (43.0-81.0); PLATELET COUNT (AUTO) 187 /CMM (150-450); RDW COEFFICIENT OF VARIATION 16.8 (11.5-15.0); RED BLOOD CELL COUNT(AUTO) 4.46 MIL/uL (4.0-5.2); WHITE BLOOD COUNT (AUTO) 2.9 K/uL (4.3-11.0)
[2017-09-26 08:01] LABS: ALANINE AMINOTRANSFERASE 20 U/L (12-78); ALBUMIN 3.4 g/dL (3.4-5.0); ALKALINE PHOSPHATASE 75 U/L (46-116); ASPARTATE AMINOTRANSFERASE 18 U/L (15-37); BILIRUBIN,TOTAL 1.2 mg/dL (0.2-1.0); CALCIUM, SERUM 8.6 mg/dL (8.5-10.1); CARBON DIOXIDE 29 mmol/L (21-32); CHLORIDE 97 mmol/L (98-107); CREATININE 2.5 mg/dL (0.6-1.3); GLUCOSE 188 mg/dL (74-106); MAGNESIUM 2.1 mg/dL (1.8-2.4); PHOSPHORUS 4.9 mg/dL (2.5-4.9); POTASSIUM 4.3 mmol/L (3.5-5.1); SODIUM SERUM 138 mmol/L (136-145); TOTAL PROTEIN, SERUM 6.9 g/dL (6.4-8.2); UREA NITROGEN, BLOOD 68 mg/dL (7-18)
[2017-09-26] MEDS: LEVOTHYROXINE SODIUM 75 MCG TABLET PO SCH (08:21)
[2017-09-26] MEDS: PANTOPRAZOLE 40 MG TABLET.DR PO SCH (08:21)
[2017-09-26] MEDS: ASPIRIN 81 MG TAB.CHEW PO SCH (08:21)
[2017-09-26] MEDS: VALSARTAN 80 MG TABLET PO SCH (08:24)
[2017-09-26] MEDS: CARVEDILOL 3.125 MG TABLET PO SCH ×2 (08:24→21:00)
[2017-09-26] MEDS: CYANOCOBALAMIN 1,000 MCG/ML VIAL IM SCH (08:24)
[2017-09-26] MEDS: BLOOD SUGAR DIAGNOSTIC 1 EACH STRIP IN SCH ×4 (08:25→22:08)
[2017-09-26] MEDS: INSULIN REGULAR, HUMAN 100 UNIT/ML 3 ML VIAL SQ PRN ×2 (08:33→22:18)
[2017-09-26] MEDS: ENOXAPARIN SODIUM 30 MG/0.3 ML DISP.SYRIN SQ SCH (08:34)
[2017-09-26] MEDS: NITROGLYCERIN 30 GM TUBE TP SCH ×2 (08:35→21:00)
[2017-09-26 10:22] LABS: BAND % (MANUAL) 1 % (0.0-5.0); EOSINOPHILS % (MANUAL) 4 % (0-4); LYMPHOCYTES % (MANUAL) 58 % (16-48); MONOCYTES % (MANUAL) 1 % (0-11.0); NEUTROPHILS % (MANUAL) 36 (42-76)
[2017-09-26] MEDS ORDERED: AMIODARONE 150 MG in IV D5W 100 ML IV ONE (12:30)
[2017-09-26] MEDS ORDERED: AMIODARONE 900 MG in IV D5W 482 ML IV PRN (12:30)
--- NOTE | 2017-09-26 12:30 | NUR ---
RN NOTES INSULIN WAS NOT GIVEN.PATIENT DID NOT EAT WELL.
[2017-09-26] MEDS ORDERED: IV NS 0.9% 500 ML IV ONE (13:30)
[2017-09-26] MEDS: IV NS 0.9% 1,000 ML IV PRN (15:59)
[2017-09-26 16:07] LABS: ABG BASE EXCESS 3.8 mmol/L; ABG OXYGEN SATURATION 95.8 % (92.0-98.5); ABG PCO2 39.4 mmHg (35.0-45.0); ABG PH 7.466 (7.350-7.450); ABG PO2 90.4 mmHg (75.0-100.0); AaDO2 62.8 mmHg; COHb 0.7 % (0.5-1.5); MetHb 0.6 % (0.0-1.5); O2Hb 94.6 % (94.0-97.0); SITE, ABG Right Brachial; VENT MODE, BG NASAL CANNULA
[2017-09-26 16:20] LABS: CALCIUM, SERUM 8.4 mg/dL (8.5-10.1); CARBON DIOXIDE 27 mmol/L (21-32); CHLORIDE 100 mmol/L (98-107); CREATININE 2.4 mg/dL (0.6-1.3); GLUCOSE 177 mg/dL (74-106); POTASSIUM 3.9 mmol/L (3.5-5.1); SODIUM SERUM 137 mmol/L (136-145); UREA NITROGEN, BLOOD 68 mg/dL (7-18)
--- NOTE | 2017-09-26 16:40 | NUR ---
CURBSTONE SETTER NOTE RN NOTES 1000:SEEN BY WITH NEW ORDERS.ALL MORNING MEDICATIONS GIVEN,PATIENT IS ALERT .ABLE TO EAT THE BREAKFAST .ABLE TO USE BOTH ARMS .ABLE TO HOLD THE HAND USING. BOTH HANDS.VITAL SIGNS STABLE.WILL CONTINUE TO MONITOR. 1130:SEEN BY WITH NEW ORDERS 1140:PATIENT NOTED MORE LETHARGIC .AND SHE TALKING ,AUSTRIAN.UNABLE TO UNDERSTAND.VITAL SIGNS CHECKED.BP 98/63,HR 62,O2 SAT 96%.CALL MADE TO 3W.NURSE CAME TO TRANSLATE.SHE DENIED CHEST PAIN.FULLY CONNOTE UNDERSTAND WHAT PATIENT EXACTLY SAID.C/O SOME PROBLEM IN THE HEART.PULSE RATE NOTED THAT ITS VARYING.LEFT MESSAGE TO ANTONELLA.ASKED FOR STAT EKG.GOT ORDER.TRANSFERRED PATIENT TO TELE STATUS AND ON TELE MONITOR.RELAYED RESULT TO NED BERMAN.POSITIVE FOR AFIB.WAITING FOR RESPONSE.RELAYED OLD AND NEW EKG RESULT TO .STARTED ON AMIODARONE BOLUS AND DRIP.ADMINISTERED AMIODARONE BOLUS AND DRIP ONGOING.DR.GIBBON Harrison,ZAKI ROMANO ABOUT THE PATIENT CONDITION.POST THORACENTESIS.SEEN BY TOLD THAT RESPIRATORY SIDE IS STABLE.SPOKE TO THE FAMILY.SEEN BY NED BERMAN AT 1450.TOLD THAT WILL ORDER CT SCAN.IVF NS 500 ML BOLUS GIVEN PER NED BERMAN.IN IVF NS 60CC/HR. FAMILY WAS AT THE BED SIDE.PATIENT CONDITION IS NOT GETTING BETTER.NOTED THAT PATIENT HAS DIFFICULTY IN MOVING HER L ARM.NOT USING IT.STROKE ASSESSMENT DONE WITH HELP OF FAMILY MEMBER TO TRANSLATE BUT PATIENT UNABLE TO GRAB WITH L HAND AND L LEG IS MORE WEAK THAN IN THE MORNING.NED BERMAN MADE ROMANO REQUESTED TO CALL CODE STROKE. SHE TOLD DONT WANT TO CALL CODE STROKE .WAITING FOR CT HEAD TO BE DONE.CHANGE CT HEAD ORDER FROM ROUTINE TO STAT.RADIOLOGY MADE AWARE.BRAKE HOLDER MADE AWARE.CALLED RAPID RESPONSE FOR NEW CHANGE OF CONDITION,NED BERMAN WAS AT BED SIDE.CANCELLED RAPID RESPONSE.EXPLAINED THE CONDITION OF THE PATIENT TO THE FAMILY.FAMILY WANT TO KEEP HER FULL CODE.SPOKE TO THE SON. STAT CT HEAD DONE.PATIENT IS MORE WEAK AND LETHARGIC AND NOTED WITH R SIDE OF THE EYE CLOSING WHILE OPEN THE MOUTH .FACIAL DROOPINESS NOTED.SNORING AND BREATHING DIFFICULTY.STAT ABG DONE. NED BERMAN MADE AWARE THAT CT RESULT AVAILABLE.GOT AN ORDER TO TRANSFER TO ICU BECAUSE PATIENT HAD STROKE.ICU NURSE EVALUATED THE PATIENT.TOLD TO TRANSFER TO ICU.TRANSFERRED PATIENT TO ICU.REPORT GIVEN TO NURSE PEÑA.NED BERMAN WAS AT THE BEDSIDE.FAMILY WAS AT BEDSIDE.
[2017-09-26] MEDS ORDERED: NOREPINEPHRINE 16 MG in IV D5W 500 ML IV PRN (17:00)
[2017-09-26] MEDS ORDERED: BLOOD SUGAR DIAGNOSTIC 1 EACH STRIP IN SCH ×2 (18:00→22:00)
--- NOTE | 2017-09-26 18:26 | NUR ---
TRANSFER EDUCATION PROFESSIONAL NOTE RCVD PT WITH EYES OPEN, ABLE TO FOLLOW SIMPLE COMMANDS SUCH LIFT AND SQUEEZE FINGERS WITH RIGHT HAND. LUE AND BLE UNABLE TO OVERCOME GRAVITY. ON RA TOLERATING WELL. KUNZ TO GRAVITY DRAINING CLOUDY, YELLOW URINE. IV SITES C/D/I/PATENT. NO S/O INFILTRATION/PHLEBITIS OBSERVED UPON FLUSHING. IVF INFUSING. ACCUCHECK DONE COVERAGE HELD, PT NPO AT THIS TIME. PT'S SON EDUCATED ON IMPORTANCE TO KEEP PT NPO TO PREVENT ASPIRATION. HOB ELEVATED. ANTONELLA, PROFESSOR OF ENVIRONMENTAL SCIENCE SPOKE WITH PT'S FAMILY REGARDING PT'S PROGNOSIS AND POTENTIAL COMPLICATIONS AT BEDSIDE. PT'S SON ACKNOWLEDGED WHEN INFORMATION WAS TRANSLATED TO HIM IN [place]. PT'S CARE ENDORSED TO TERADATA DEVELOPER RN. BED IN LOW AND LOCKED POSITION. CALL LIGHT WITHIN REACH.
--- NOTE | 2017-09-26 19:30 | NUR ---
RELIEF WORKER INITIAL NOTE RECEIVED PATIENT AWAKE, BURUNDIAN SPEAKING, SON AT BEDSIDE. DENIES PAIN OR DISCOMFORT AT THIS TIME. NOTED WITH CLEAR SPEECH, BUT DELAYED. NO SOB AT THIS TIME. ON ROOM AIR. SKIN WARM AND DRY TO TOUCH . PATIENT ABLE TO FOLLOW COMMANDS. SON ASSISTED WITH TRANSLATION. ON TELE MONITOR AFIB UNCONTROLLED. NOTED PATIENT WITH LEFT SIDED WEAKNESS, PATIENT ABLE TO FEEL PAIN ON LEFT SIDE, WIGGLE TOES, BUT UNABLE TO MOVE. PATIENT ON LEVO AT 2MCG/MIN AND IVF RUNNING. WITH F/C PATENT AND INTACT, DRAINING BY GRAVITY. SIDE RAILS UP AND LOCKED. BED KEPT AT LOWEST POSITION. CALL LIGHT KEPT WITHIN EASY REACH. WILL CONTINUE TO MONITOR.
--- NOTE | 2017-09-26 19:41 | NUR ---
SPOKE WITH RIPRAP WORKER REGARDING PICC LINE, INFORMED PATIENT HAS CONSENT FOR PICC LINE, PER RIPRAP WORKER PICC LINE NURSE WILL BE HERE IN THE MORNING.
[2017-09-26 19:42] LABS: INR 1.01 (0.87-1.13)
--- NOTE | 2017-09-26 20:30 | NUR ---
KAIAWHINA KURA KAUPAPA MAORI NOTE TURNED OFF LEVO AT THIS TIME. SBP >110 AND MAP >65. WILL CONTINUE TO MONITOR.
[2017-09-26] MEDS ORDERED: LEVETIRACETAM (500MG) 500 MG in IV NS 0.9% 100 ML IV SCH (21:00)
--- NOTE | 2017-09-26 21:06 | NUR ---
RN NOTES 1000:SEEN BY WITH NEW ORDERS.ALL MORNING MEDICATIONS GIVEN,PATIENT IS ALERT .ABLE TO EAT THE BREAKFAST .ABLE TO USE BOTH ARMS .ABLE TO HOLD THE HAND USING. BOTH HANDS.VITAL SIGNS STABLE.WILL CONTINUE TO MONITOR. 1130:SEEN BY WITH NEW ORDERS 1140:PATIENT NOTED MORE LETHARGIC .AND SHE TALKING ,KUWAITI.UNABLE TO UNDERSTAND.VITAL SIGNS CHECKED.BP 98/63,HR 62,O2 SAT 96%.CALL MADE TO 3W.NURSE CAME TO TRANSLATE.SHE DENIED CHEST PAIN.FULLY CONNOTE UNDERSTAND WHAT PATIENT EXACTLY SAID.C/O SOME PROBLEM IN THE HEART.PULSE RATE NOTED THAT ITS VARYING.LEFT MESSAGE TO ANTONELLA.ASKED FOR STAT EKG.GOT ORDER.TRANSFERRED PATIENT TO TELE STATUS AND ON TELE MONITOR.RELAYED RESULT TO NED BERMAN.POSITIVE FOR AFIB.WAITING FOR RESPONSE.RELAYED OLD AND NEW EKG RESULT TO .STARTED ON AMIODARONE BOLUS AND DRIP.ADMINISTERED AMIODARONE BOLUS AND DRIP ONGOING.DR.GIBBON Harrison,ZAKI ROMANO ABOUT THE PATIENT CONDITION.POST THORACENTESIS.SEEN BY TOLD THAT RESPIRATORY SIDE IS STABLE.SPOKE TO THE FAMILY.SEEN BY NED BERMAN AT 1450.TOLD THAT WILL ORDER CT SCAN.IVF NS 500 ML BOLUS GIVEN PER NED BERMAN.IN IVF NS 60CC/HR. FAMILY WAS AT THE BED SIDE.PATIENT CONDITION IS NOT GETTING BETTER.NOTED THAT PATIENT HAS DIFFICULTY IN MOVING HER L ARM.NOT USING IT.STROKE ASSESSMENT DONE WITH HELP OF FAMILY MEMBER TO TRANSLATE BUT PATIENT UNABLE TO GRAB WITH L HAND AND L LEG IS MORE WEAK THAN IN THE MORNING.NED BERMAN MADE ROMNAO REQUESTED TO CALL CODE STROKE. SHE TOLD DONT WANT TO CALL CODE STROKE .WAITING FOR CT HEAD TO BE DONE.CHANGE CT HEAD ORDER FROM ROUTINE TO STAT.RADIOLOGY MADE AWARE.CORE LAYING MACHINE OPERATOR MADE AWARE.CALLED RAPID RESPONSE FOR NEW CHANGE OF CONDITION,NED BERMAN WAS AT BED SIDE.CANCELLED RAPID RESPONSE.EXPLAINED THE CONDITION OF THE PATIENT TO THE FAMILY.FAMILY WANT TO KEEP HER FULL CODE.SPOKE TO THE SON. STAT CT HEAD DONE.PATIENT IS MORE WEAK AND LETHARGIC AND NOTED WITH R SIDE OF THE EYE CLOSING WHILE OPEN THE MOUTH .FACIAL DROOPINESS NOTED.SNORING AND BREATHING DIFFICULTY.STAT ABG DONE. NED BERMAN MADE AWARE THAT CT RESULT AVAILABLE.GOT AN ORDER TO TRANSFER TO ICU BECAUSE PATIENT HAD STROKE.ICU NURSE EVALUATED THE PATIENT.TOLD TO TRANSFER TO ICU.TRANSFERRED PATIENT TO ICU.REPORT GIVEN TO NURSE PEÑA.NED BERMAN WAS AT THE BEDSIDE.FAMILY WAS AT BEDSIDE. Addendum: 09/26/17 at 2153 by YAHIR SENA RN WRONG TIME DOCUMENTED
--- NOTE | 2017-09-26 21:17 | NUR ---
DATA ENTRY EMAIL PROCESSOR NOTE FAMILY AT BEDSIDE. SON JOSE G PERALTA WOULD LIKE TO CHANGE CODE STATUS FROM FULL CODE TO DNR/DNI, GRANDDAUGHTER AVA AT BEDSIDE ASSISTING WITH TRANSLATION. PER FAMILY THEY DONT WANT PATIENT TO SUFFER ANY LONGER. CHARGE NURSE INFORMED. MD INFORMED. WILL CONTINUE TO MONITOR.
[2017-09-26] MEDS: ATORVASTATIN 10 MG TABLET PO SCH (21:49)
[2017-09-26] MEDS: HEPARIN SODIUM, PORCINE 5000 UNITS/1 ML VIAL SQ SCH (22:08)
[2017-09-27] VITALS (63 sets, daily range): BP systolic 89–160; BP diastolic 48–92
[2017-09-27] MEDS ORDERED: ACETAMINOPHEN 650 MG/SUPP.RECT RC PRN
--- NOTE | 2017-09-27 00:15 | NUR ---
SENIOR MAJOR GIFTS OFFICER NOTE DID SWALLOW SCREENING FOR PATIENT WITH SON AT BEDSIDE. PATIENT PLACED NINETY DEGREES, PATIENT HAD NO DIFFICULTY SWALLOWING THIN LIQUIDS, NO COUGHING NOTED. MD NOTIFIED. WITH ORDERS OK TO START DIET.
[2017-09-27] MEDS: ACETAMINOPHEN 325 MG TABLET PO PRN (01:35)
[2017-09-27 05:11] LABS: INR 0.98 (0.87-1.13)
[2017-09-27 05:17] LABS: ALANINE AMINOTRANSFERASE 15 U/L (12-78); ALBUMIN 3.2 g/dL (3.4-5.0); ALKALINE PHOSPHATASE 72 U/L (46-116); ASPARTATE AMINOTRANSFERASE 18 U/L (15-37); BILIRUBIN,TOTAL 1.2 mg/dL (0.2-1.0); CALCIUM, SERUM 8.2 mg/dL (8.5-10.1); CARBON DIOXIDE 29 mmol/L (21-32); CHLORIDE 100 mmol/L (98-107); CREATININE 2.1 mg/dL (0.6-1.3); GLUCOSE 152 mg/dL (74-106); PHOSPHORUS 4.1 mg/dL (2.5-4.9); POTASSIUM 3.7 mmol/L (3.5-5.1); SODIUM SERUM 137 mmol/L (136-145); TOTAL PROTEIN, SERUM 6.2 g/dL (6.4-8.2); UREA NITROGEN, BLOOD 68 mg/dL (7-18)
[2017-09-27 05:25] LABS: CHOLESTEROL 120 mg/dL (<200); CREATINE KINASE, TOTAL 43 U/L (26-192); HDL CHOLESTEROL 24 mg/dL (40-60); LDL 72 mg/dL (0-99); TRIGLYCERIDES 181 mg/dL (30-150)
[2017-09-27 06:11] LABS: HEMATOCRIT 34 % (33-45); HEMOGLOBIN 11.6 g/dL (11.5-14.8); LYMPHOCYTES % (AUTO) 63.6 % (20.0-44.0); MEAN CORPUSCULAR HEMOGLOBIN 29 PG (26.0-33.0); MEAN CORPUSCULAR HGB CONC 35 g/dl (31.0-36.0); MEAN CORPUSCULAR VOLUME 85 fL (82-100); MONOCYTES % (AUTO) 2.8 % (2.0-12.0); NEUTROPHILS % (AUTO) 30.2 % (43.0-81.0); PLATELET COUNT (AUTO) 192 /CMM (150-450); RDW COEFFICIENT OF VARIATION 18.2 (11.5-15.0); RED BLOOD CELL COUNT(AUTO) 3.95 MIL/uL (4.0-5.2); WHITE BLOOD COUNT (AUTO) 2.6 K/uL (4.3-11.0)
[2017-09-27 06:12] LABS: EOSINOPHILS % (AUTO) 2.4 % (0.0-6.0)
--- NOTE | 2017-09-27 07:38 | NUR ---
DATAPOWER DEVELOPER CLOSING NOTE NO SIGNIFICANT CHANGE OVERNIGHT. ALL NEEDS ANTICIPATED AND MET. NO SOB NOTED. KEPT CLEAN AND DRY. TURNED AND REPOSITIONED Q2 AND PRN. F/C PATENT AND INTACT, DRAINING BY GRAVITY. HOB ELEVATED. SIDE RAILS UP AND LOCKED. BED KEPT AT LOWEST POSITION. CALL LIGHT KEPT WITHIN EASY REACH. CONTINUITY OF CARE ENDORSED TO AM NURSE.
--- NOTE | 2017-09-27 07:47 | NUR ---
INITIAL FARO DEALER NOTE RCVD PT AWAKE AND ALERT TO SELF, SHOWING NO S/O DISTRESS/PAIN AT THIS TIME. AFIB ON TELE. ON RA TOLERATING WELL. KUNZ TO GRAVITY DRAINING YELLOW URINE. RIGHT IV SITE C/D/I/PATENT. PENDING PICC LINE INSERTION TODAY. OFF PRESSORS, VITAL SIGNS STABLE. PT MONGOLIAN SPEAKING ONLY, COMMUNICATION IS LIMITED. PUPILS PERRLA 3 PERIPHERAL VISION LIMITED ON THE LEFT SIDE. LUE AND LLE APPEAR TO BE FLACCID AND RLE ABLE TO MOVE TOES, RUE PT ABLE TO MAKE FIST AND FOLLOW SIMPLE COMMANDS. WILL CONTINUE TO MONITOR PT FOR SAFETY AND COMFORT. CALL LIGHT WITHIN REACH. BED IN LOW AND LOCKED POSITION.
[2017-09-27] MEDS: BLOOD SUGAR DIAGNOSTIC 1 EACH STRIP IN SCH ×4 (08:05→22:04)
[2017-09-27] MEDS: ASPIRIN 81 MG TAB.CHEW PO SCH (08:05)
[2017-09-27] MEDS: LEVOTHYROXINE SODIUM 75 MCG TABLET PO SCH (08:05)
[2017-09-27] MEDS: NITROGLYCERIN 30 GM TUBE TP SCH ×2 (08:06→21:00)
[2017-09-27] MEDS: IV NS 0.9% 1,000 ML IV PRN (08:06)
[2017-09-27] MEDS: CARVEDILOL 3.125 MG TABLET PO SCH ×3 (08:06→21:00)
[2017-09-27] MEDS: HEPARIN SODIUM, PORCINE 5000 UNITS/1 ML VIAL SQ SCH ×2 (08:09→22:06)
[2017-09-27] MEDS: INSULIN REGULAR, HUMAN 100 UNIT/ML 3 ML VIAL SQ PRN (08:09)
[2017-09-27] MEDS: PANTOPRAZOLE 40 MG VIAL IV SCH (08:40)
[2017-09-27] MEDS ORDERED: ENOXAPARIN SODIUM 30 MG/0.3 ML DISP.SYRIN SQ SCH (09:00)
[2017-09-27] MEDS ORDERED: DIGOXIN INJ 0.5 MG/2 ML AMPUL IV ONE (09:10)
--- NOTE | 2017-09-27 10:48 | NUR ---
FINAL BLOCK PRESS OPERATOR NOTE PER PT'S SON NO MORE PICC LINE, IF ASKED HIM IF WE COULD PLACE A MIDLINE. HE AGREED. DR. NEWELL IN UNIT CHANGED COREG ORDER ASKED HIM ABOUT PERMISSIVE HYPERTENSION HE RECOMMENDED TO KEEP SBP 130-140's. BP MEDICATIONS HELD THIS AM. REQUESTED MEDICATION FOR RATE CONTROL DIGOXIN TO BE GIVEN X3 DOSES. ORDERS ENTERED AND CARRIED OUT. WILL CONTINUE TO MONITOR PT.
[2017-09-27] MEDS: CYANOCOBALAMIN 1,000 MCG/ML VIAL IM SCH (11:48)
[2017-09-27] MEDS: DIGOXIN INJ 0.5 MG/2 ML AMPUL IV SCH ×2 (14:45→22:05)
[2017-09-27 15:35] LABS: APPEARANCE,URINE CLEAR (CLEAR); BILIRUBIN,URINE NEGATIVE (NEGATIVE); BLOOD, URINE NEGATIVE Ery/uL (NEGATIVE); COLOR,URINE YELLOW (YELLOW); KETONES,URINE NEGATIVE (NEGATIVE); LEUKOCYTE ESTERASE ,URINE NEGATIVE (NEGATIVE); NITRITE, URINE NEGATIVE (NEGATIVE); PH,URINE 5.5 (5.0-8.0); PROTEIN,URINE TRACE mg/dl (NEGATIVE); UGLUCOSE NEGATIVE (NEGATIVE); UROBILINOGEN,URINE 0.2 EU/dL (0.2)
[2017-09-27 15:40] LABS: BACTERIA,URINE None seen /HPF (None Seen); RBC,URINE 0-2 /HPF (0-2); SQUAMOUS EPITHELIAL CELL,UR 0-2 /HPF (None Seen); WBC,URINE 0-2 /HPF (0-3)
[2017-09-27 16:09] LABS: CREATININE, URINE 116.7 MG/DL (30.0-125.0); URINE TOTAL PROTEIN 26.9 mg/dL (0-11.9)
--- NOTE | 2017-09-27 16:39 | NUR ---
ALTERNATIVE DISPUTE RESOLUTION MEDIATOR NOTE NED BERMAN IN UNIT ASSESSING PT, UPDATED ON PT'S CONDITION. INFORMED OF VARIED NIHSS SCORES THROUGHOUT THE DAY AND ACKNOWLEDGED. CHANGE NIHSS ASSESSSMENT TO Q SHIFT. PT CLEARED TO LEAVE ICU.
[2017-09-27 17:45] LABS: EOSINOPHIL,URINE None Seen
[2017-09-27 18:58] LABS: HEMOGLOBIN 12.4 g/dL (11.5-14.8); RED BLOOD CELL COUNT(AUTO) 4.28 MIL/uL (4.0-5.2); WHITE BLOOD COUNT (AUTO) 3.6 K/uL (4.3-11.0)
[2017-09-27 18:59] LABS: HEMATOCRIT 37 % (33-45); MEAN CORPUSCULAR HEMOGLOBIN 29 PG (26.0-33.0); MEAN CORPUSCULAR HGB CONC 33 g/dl (31.0-36.0); MEAN CORPUSCULAR VOLUME 87 fL (82-100)
[2017-09-27 19:00] LABS: BASOPHILS % (AUTO) 0.6 % (0.0-2.0); EOSINOPHILS % (AUTO) 1.6 % (0.0-6.0); LYMPHOCYTES # (AUTO) 2.6 /CMM (0.8-4.8); MONOCYTES % (AUTO) 2.7 % (2.0-12.0); NEUTROPHILS # (AUTO) 0.9 /CMM (1.8-8.9); NEUTROPHILS % (AUTO) 24.1 % (43.0-81.0); PLATELET COUNT (AUTO) 143 /CMM (150-450); RDW COEFFICIENT OF VARIATION 18.4 (11.5-15.0)
[2017-09-27 19:01] LABS: MONOCYTES # (AUTO) 0.1 /CMM (0.1-1.30)
--- NOTE | 2017-09-27 19:04 | NUR ---
EPIC CUPID ANALYST NOTE PER DR. NEWELL GIVE PT 3 DOSES OF DIGOXIN 2/3 DOSES GIVEN BUT 2 DOSES PENDING TO BE GIVEN ON MAY. ANMOL, RB INFORMED THAT PT'S MISSING ONLY ONE MORE DOSE OF DIG AND TO HOLD THE FOURTH DOSE. ANMOL ACKNOWLEDGED. ATTEMPTED TO CALL PHARMACY BUT THEY'RE NOT PICKING UP THE PHONE ANY MORE.
--- NOTE | 2017-09-27 19:11 | NUR ---
BUFFING LINE SET UP WORKER NOTE PT REMAINS OFF PRESSORS VITAL SIGNS STABLE, AFIB ON TELE. ON RA TOLERATING WELL. PT AWAKE AND ALERT ABLE TO FOLLOW COMMANDS. KUNZ TO GRAVITY DRAINING YELLOW URINE. IV SITES C/D/I/PATENT. NO S/O INFILTRATION/PHLEBITIS OBSERVED UPON FLUSHING. IVF INFUSING. PT'S CARE ENDORSED TO ABLE BODIED SEAMAN RN FOR CONTINUITY OF CARE. BED IN LOW AND LOCKED POSITION. CALL LIGHT WITHIN REACH. Addendum: 09/27/17 at 1915 by TERESA LORENZANA RN NED BERMAN CONTACTED REGARDING PT'S TROPONIN TRENDING UP. NO NEW ORDERS RCVD. REQUESTED PT'S IVF TO BE CHANGED FROM NS TO D5W, SHE AGREED. ORDER ENTERED AND CARRIED OUT.
[2017-09-27] MEDS: IV D5W 1,000 ML IV PRN (19:20)
--- NOTE | 2017-09-27 19:30 | NUR ---
COLOR FINISHER INITIAL NOTE RECEIVED PATIENT AWAKE ALERT AND ORIENTED. NO S/S OF PAIN OR DISCOMFORT. PATIENT ABLE TO MAKE NEEDS KNOWN, FOLLOWS SIMPLE COMMANDS. NO RESPIRATORY DISTRESS NOTED, ON ROOM AIR. SKIN WARM AND DRY TO TOUCH. ON TELE MONITOR AFIB UNCONTROLLED. PER AM NURSE 3 DOSES OF DIGOXIN WAS ORDERED TO GIVEN AND 2 HAVE ALREADY BEEN GIVEN. F/C PATENT AND INTACT, DRAINING BY GRAVITY. HOB ELEVATED. SIDE RAILS UP AND LOCKED. BED KEPT AT LOWEST POSITION. CALL LIGHT KEPT WITHIN EASY REACH. WILL CONTINUE TO MONITOR.
[2017-09-27 20:09] LABS: BAND % (MANUAL) 1 % (0.0-5.0); EOSINOPHILS % (MANUAL) 1 % (0-4); LYMPHOCYTES % (MANUAL) 59 % (16-48); MONOCYTES % (MANUAL) 5 % (0-11.0); NEUTROPHILS % (MANUAL) 34 (42-76)
[2017-09-27] MEDS: ATORVASTATIN 10 MG TABLET PO SCH (22:00)
[2017-09-28] VITALS (15 sets, daily range): BP systolic 104–155; BP diastolic 49–110
--- NOTE | 2017-09-28 | NUR ---
PHARMACIST TECHNICIAN NOTE BED BATH GIVEN, PATIENT ABLE TO ASSIST MINIMALLY. PICTURES TAKEN, TOLERATED WELL. WILL CONTINUE TO MONITOR.
[2017-09-28] MEDS: DIGOXIN INJ 0.5 MG/2 ML AMPUL IV SCH (03:00)
--- NOTE | 2017-09-28 04:40 | NUR ---
PREVENTIVE MAINTENANCE COORDINATOR NOTE CONTINUITY OF CARE ENDORSED TO CHIQUI RN SCHUYLER
[2017-09-28 05:26] LABS: CALCIUM, SERUM 8.5 mg/dL (8.5-10.1); CREATININE 1.3 mg/dL (0.6-1.3); GLUCOSE 124 mg/dL (74-106); PHOSPHORUS 2.9 mg/dL (2.5-4.9); UREA NITROGEN, BLOOD 47 mg/dL (7-18)
[2017-09-28 05:33] LABS: HEMATOCRIT 30 % (33-45); HEMOGLOBIN 10.3 g/dL (11.5-14.8); MEAN CORPUSCULAR HEMOGLOBIN 29 PG (26.0-33.0); MEAN CORPUSCULAR HGB CONC 34 g/dl (31.0-36.0); MEAN CORPUSCULAR VOLUME 85 fL (82-100); PLATELET COUNT (AUTO) 139 /CMM (150-450); RDW COEFFICIENT OF VARIATION 17.8 (11.5-15.0); RED BLOOD CELL COUNT(AUTO) 3.51 MIL/uL (4.0-5.2); WHITE BLOOD COUNT (AUTO) 1.9 K/uL (4.3-11.0)
[2017-09-28 05:34] LABS: BASOPHILS % (AUTO) 0.5 % (0.0-2.0); EOSINOPHILS % (AUTO) 1.8 % (0.0-6.0); LYMPHOCYTES # (AUTO) 1.3 /CMM (0.8-4.8); LYMPHOCYTES % (AUTO) 68.4 % (20.0-44.0); MONOCYTES # (AUTO) 0.1 /CMM (0.1-1.30); MONOCYTES % (AUTO) 3.6 % (2.0-12.0); NEUTROPHILS # (AUTO) 0.5 /CMM (1.8-8.9); NEUTROPHILS % (AUTO) 25.7 % (43.0-81.0)
[2017-09-28 05:38] LABS: CARBON DIOXIDE 27 mmol/L (21-32); CHLORIDE 102 mmol/L (98-107); SODIUM SERUM 136 mmol/L (136-145)
--- NOTE | 2017-09-28 05:41 | NUR ---
MANAGER INTERMEDIATE NOTE RELAYED CRITICAL LAB VALUE WBC 1.[address] LARIOS WITH NNO
--- NOTE | 2017-09-28 06:10 | NUR ---
CABLE INSTALLATION TECHNICIAN NOTES, AFTER RECEIVED REPORT FROM ANMOL RN, RECEIVED PATIENT FROM ICU IN COMPANY OF 2 RNS VIA BED IN STABLE CONDITION AT THIS TIME, AFIB IN TELE MONITOR IN 70S AT THIS TIME, BREATHING EVEN AND UNLABORED, NO S/S ACUTE DISTRESS/SOB OR ANY DISCOMFORT, ON RA WITH OPTIMAL SATURATION >98% AT THIS TIME, MELIA MIDLINE PATENT AND INTACT, IVF INFUSING WELL ND PATIENT TOLERATED WELL, NOTED WITH LEFT LEF MORE EDEMATOUS THAT RIGHT LEG, AFEBRILE AT THIS TIME, NO S/S OF INFILTRATION NOTED, DRY AND CLEAN AND WELL REPOSITIONED, BED LOCKED AND IN LOWEST POSITION, WILL CONTINUE TO MONITOR CLOSELY AND ENDORSE CONTINUITY OF CARE TO ONCOMING NURSE, VS 125/64, 74, 98.2, 98% RA, 18, 0/10.
--- NOTE | 2017-09-28 06:18 | NUR ---
TENNIS COURT ATTENDANT NOTE PATIENT TRANSFERRED VIA ACLS PROTOCOL IN STABLE CONDITION.
--- NOTE | 2017-09-28 06:20 | NUR ---
TEAM COORDINATOR NOTE INFORMED SON MARYFLORENCIA REGARDING ROOM CHANGE. SON APPRECIATED CALL.
--- NOTE | 2017-09-28 07:15 | NUR ---
RN INITIAL NOTES RECEIVED PT AWAKE, A/OX2. NAMIBIAN SPEAKING ONLY. PT ON ROOM AIR. NO SOB NOTED. HOB ELEVATED. MELIA MIDLINE IN PLACE. IVF INFUSING. FC IN PLACE. NO HEMATURIA NOTED. PT COMFORTABLE. REPOSITIONED. BLE ELEVATED. WILL MONITOR.
[2017-09-28] MEDS: CYANOCOBALAMIN 1,000 MCG/ML VIAL IM SCH (08:36)
[2017-09-28] MEDS: ASPIRIN 81 MG TAB.CHEW PO SCH (08:36)
[2017-09-28] MEDS: CARVEDILOL 3.125 MG TABLET PO SCH ×2 (08:36→21:00)
[2017-09-28] MEDS: HEPARIN SODIUM, PORCINE 5000 UNITS/1 ML VIAL SQ SCH ×2 (08:36→21:30)
[2017-09-28] MEDS: PANTOPRAZOLE 40 MG VIAL IV SCH (08:36)
[2017-09-28] MEDS: LEVOTHYROXINE SODIUM 75 MCG TABLET PO SCH (08:36)
[2017-09-28] MEDS: BLOOD SUGAR DIAGNOSTIC 1 EACH STRIP IN SCH ×4 (08:37→21:26)
[2017-09-28] MEDS: NITROGLYCERIN 30 GM TUBE TP SCH ×3 (09:00→21:28)
--- NOTE | 2017-09-28 09:00 | NUR ---
RN NOTES SEEN AND EXAMINED BY DR NEWELL. AWARE OF CURRENT LAB VALUES AND CXR RESULT. PT'S SBP ON 110S, HR 80S. NO SIGNS OF CARDIAC DISTRESS NOTED. WILL MONITOR.
--- NOTE | 2017-09-28 09:30 | NUR ---
RN NOTES SEEN AND EXAMINED BY DR RO. PT AWAKE, A/O. STILL WITH LEFT SIDED WEAKNESS. NO CHANGE IN LOC NOTED. WILL MONITOR.
--- NOTE | 2017-09-28 10:00 | NUR ---
RN NOTES SEEN AND EXAMINED BY DR JOHNSTON. PT ON ROOM AIR. NO SOB NOTED. HOB ELEVATED. REPOSITIONED. WILL MONITOR.
[2017-09-28 10:32] LABS: LYMPHOCYTES % (MANUAL) 43 % (16-48); MONOCYTES % (MANUAL) 3 % (0-11.0); NEUTROPHILS % (MANUAL) 54 (42-76)
[2017-09-28] MEDS: DIGOXIN 0.25 MG TABLET PO SCH (12:45)
[2017-09-28] MEDS: INSULIN REGULAR, HUMAN 100 UNIT/ML 3 ML VIAL SQ PRN (12:47)
--- NOTE | 2017-09-28 13:00 | NUR ---
RN NOTES SEEN AND EXAMINED BY ANTONELLA PAPPAS NP. AWARE OF CURRENT LAB VALUES: WBC 1.9, HGB 10.3, HCT 30, PLATELET 139. PT FAILED SWALLOW EVAL. WILL TRY AGAIN WILLY. WILL CONTINUE TO MONITOR.
--- NOTE | 2017-09-28 13:38 | NUR ---
Social service consult requested by NED Torres for possible stroke. Pt. is a 81 year old female who was admitted to [facility] for stroke. Pt. is Guatemalan speaking and pt's son was not available bedside. SW discussed with senior case manager Denia. Igor Loza pt. moved from [facility] in 2018. Pt. lives with her son at home. Pt's son Jose is her primary caregiver . Pt. needs assistance with her ADL's. Pt. is alert and oriented and has bouts of confusion at times. Pt. does not have any home health services at this time. Pt's son is requesting SNF placement temporarily. Pt. currently does not have an advance directive. Pt. was referred by senior case manager Denia to [facility] and was accepted. manager of product to follow up with son Jose. No social service needs are required at this time. SW is available, if needed.
[2017-09-28] MEDS: IV D5W 1,000 ML IV PRN (14:32)
--- NOTE | 2017-09-28 18:40 | NUR ---
RN CLOSING NOTES NO CHANGE IN LOC NOTED. NO SIGNIFICANT CHANGE NOTED. KEPT CLEAN AND DRY. KEPT COMFORTABLE. REPOSITIONED Q2. ALL NEEDS ANTICIPATED AND MET. WILL ENDORSE FOR CONTINUITY OF CARE.
--- NOTE | 2017-09-28 20:37 | NUR ---
MACHINE HAND NOTES RECEIVED PT ON BED. A/OX2 TURKISH SPEAKING SON AT BEDSIDE. ON ROOM AIR SATURATING WELL. TELE MONITOR AFIB CONTROLLED 86. PT ON NPO. IV ACCESS ON MELIA MIDLINE D5W @60CC/HR RUNNING WELL AND INTACT. HEAD OF BED ELEVATED. SIDE RAILS UP. CALL LIGHT IS PLACED WITHIN REACH. BED ALARM ON. WILL CONTINUE TO MONITOR PT CLOSELY.
--- NOTE | 2017-09-28 20:44 | NUR ---
MIDDLEWARE ARCHITECT NOTES PT SON REFUSING HIS MOM TO BE TRANSFERRED IN PRIVATE ROOM BEC THE AIR CONDITIONING IS NOT WORKING. PAGED THE ENGINEERING DEPARTMENT. WAITING FOR CALL BACK.
[2017-09-28] MEDS: MORPHINE SULFATE INJ 2 MG/ML DISP.SYRIN IV PRN (21:34)
[2017-09-28] MEDS: ATORVASTATIN 10 MG TABLET PO SCH (21:35)
--- NOTE | 2017-09-28 22:30 | NUR ---
PROFESSOR OF EDUCATION NOTES CALLED DR. LARIOS REGARDING PAIN MEDICATION. ORDERED MORPHINE 2MG IV PUSH PRN Q4H FOR PAIN. ALSO DC ACETAMINOPHEN 625 AND NORCO 5 P.O SINCE PATIENT IS NPO.
[2017-09-29] VITALS (8 sets, daily range): BP systolic 106–166; BP diastolic 56–81
--- NOTE | 2017-09-29 00:13 | NUR ---
CAR ATTENDANT NOTES NITROGLYCERIN PATCH NOT GIVEN. PT ON PERMISSIVE HTN
--- NOTE | 2017-09-29 04:46 | NUR ---
EXECUTIVE DIRECTOR CONTRACT SHOP NOTES PT SLEEPING COMFORTABLE. MORPHINE SULFATE 2MG FOR PAIN NOT GIVEN.
[2017-09-29] MEDS: IV D5W 1,000 ML IV PRN ×2 (05:46→22:43)
[2017-09-29] MEDS: MORPHINE SULFATE INJ 2 MG/ML DISP.SYRIN IV PRN (05:52)
[2017-09-29] MEDS: ONDANSETRON HCL/PF 4 MG/2 ML VIAL IVP PRN ×2 (06:29→13:34)
[2017-09-29 06:30] LABS: CALCIUM, SERUM 8.5 mg/dL (8.5-10.1); CARBON DIOXIDE 27 mmol/L (21-32); CHLORIDE 99 mmol/L (98-107); CREATININE 1.2 mg/dL (0.6-1.3); GLUCOSE 119 mg/dL (74-106); PHOSPHORUS 2.5 mg/dL (2.5-4.9); POTASSIUM 4.1 mmol/L (3.5-5.1); SODIUM SERUM 134 mmol/L (136-145); UREA NITROGEN, BLOOD 34 mg/dL (7-18)
[2017-09-29 07:07] LABS: BASOPHILS % (AUTO) 0.6 % (0.0-2.0); EOSINOPHILS % (AUTO) 2.8 % (0.0-6.0); HEMATOCRIT 31 % (33-45); HEMOGLOBIN 10.9 g/dL (11.5-14.8); LYMPHOCYTES # (AUTO) 1.5 /CMM (0.8-4.8); LYMPHOCYTES % (AUTO) 72.5 % (20.0-44.0); MEAN CORPUSCULAR HEMOGLOBIN 30 PG (26.0-33.0); MEAN CORPUSCULAR HGB CONC 35 g/dl (31.0-36.0); MEAN CORPUSCULAR VOLUME 85 fL (82-100); MONOCYTES # (AUTO) 0.1 /CMM (0.1-1.30); MONOCYTES % (AUTO) 2.8 % (2.0-12.0); NEUTROPHILS # (AUTO) 0.5 /CMM (1.8-8.9); NEUTROPHILS % (AUTO) 21.3 % (43.0-81.0); PLATELET COUNT (AUTO) 146 /CMM (150-450); RDW COEFFICIENT OF VARIATION 16.8 (11.5-15.0); RED BLOOD CELL COUNT(AUTO) 3.66 MIL/uL (4.0-5.2); WHITE BLOOD COUNT (AUTO) 2.2 K/uL (4.3-11.0)
--- NOTE | 2017-09-29 07:25 | NUR ---
TELE CLOSING NOTES NO ACUTE CHANGES NOTED DURING THE SHIFT. PROVIDED COMFORT AND SAFETY. SON UPDATED REGARDING PTS CONDITION. ENDORSED TO THE AM NURSE FOR AILEEN.
[2017-09-29] MEDS: LEVOTHYROXINE SODIUM 75 MCG TABLET PO SCH (07:30)
[2017-09-29] MEDS: BLOOD SUGAR DIAGNOSTIC 1 EACH STRIP IN SCH ×4 (07:59→21:37)
[2017-09-29] MEDS: INSULIN REGULAR, HUMAN 100 UNIT/ML 3 ML VIAL SQ PRN ×4 (08:06→21:47)
[2017-09-29] MEDS: ASPIRIN 81 MG TAB.CHEW PO SCH (08:43)
[2017-09-29] MEDS: CARVEDILOL 3.125 MG TABLET PO SCH (08:44)
[2017-09-29] MEDS: NITROGLYCERIN 30 GM TUBE TP SCH ×2 (08:45→21:37)
[2017-09-29] MEDS: PANTOPRAZOLE 40 MG VIAL IV SCH (09:11)
[2017-09-29] MEDS: CYANOCOBALAMIN 1,000 MCG/ML VIAL IM SCH (09:12)
[2017-09-29] MEDS: HEPARIN SODIUM, PORCINE 5000 UNITS/1 ML VIAL SQ SCH ×2 (09:12→21:39)
[2017-09-29] MEDS: DIGOXIN 0.25 MG TABLET PO SCH (13:00)
[2017-09-29 14:12] LABS: *SPE A/G RATIO 1.3 (0.7-1.7); *SPE ALBUMIN 3.3 g/dL (2.9-4.4); *SPE ALPHA-1-GLOBULIN 0.2 g/dL (0.0-0.4); *SPE ALPHA-2-GLOBULIN 0.8 g/dL (0.4-1.0); *SPE BETA GLOBULIN 0.8 g/dL (0.7-1.3); *SPE GLOBULIN, TOTAL 2.5 g/dL (2.2-3.9); *SPE M-SPIKE Not Observed g/dL (Not Observed); *SPEGAMMA GLOBULIN 0.7 g/dL (0.4-1.8)
[2017-09-29] MEDS: DIGOXIN INJ 0.5 MG/2 ML AMPUL IV SCH (14:57)
--- NOTE | 2017-09-29 18:19 | NUR ---
SON AT BEDSIDE. TURNED AND REPOSITIONED FOR COMFORT. ON O2 AT 2L NC. OCCASIONALLY APPEARS TO BE SHORT OF BREATH AND GOES AWAY. ALSO NOTED TO DRY HEAVE AT TIMES AND THEN GOES BACK TO SLEEP. KEPT NPO UNABLE TO PASS SWALLOW EVAL PER SPEECH THERAPIST. BLOOD SUGARS MONITORED. KUNZ CATH DRAINING CLEAR YELLOW URINE. BED LOW AND LOCKED. CALL LIGHT WITHIN REACHED. WILL CONT TO MONITOR.
--- NOTE | 2017-09-29 19:15 | NUR ---
RN M/S NOTE PATIENT IS AOX2, NORWEGIAN SPEAKING, RESTING COMFORTABLY WITH HOB ELEVATED, ON REVERSE ISOLATION PRECAUTIONS, ON 2L O2 VIA NC, NO S/SX OF RESPIRATORY OR CARDIAC DISTRESS, ON TELE AFIB/AFLUTTER 68, F/C DRAINING TO GRAVITY, SKIN IS DRY, MELIA MIDLINE WITH D5W AT 60 ML/HR, PATENT, FLUSHING WELL, SITE CDI. NPO, SAFETY MAINTAINED AT ALL TIMES, BED IN LOW LOCKED POSITION, CALL LIGHT WITHIN REACH, WILL CONTINUE TO MONITOR FOR ANY CHANGES IN CONDITION.
[2017-09-29] MEDS: ATORVASTATIN 10 MG TABLET PO SCH (21:38)
--- NOTE | 2017-09-29 23:45 | NUR ---
[place] TRANSPORTATION DRIVER NOTES, RECEIVED PATIENT FROM SWATHI IVERSON FOR CONTINUATION OF CARE, PATIENT BREATHING EVEN AND UNLABORED, NO SOB/ACUTE DISTRESS AT THIS TIME, ON REVERSE ISOLATION, ALL Addendum: 09/30/17 at 0108 by SCHUYLER VALADEZ RN FOR NEUTROPENIC PRECAUTIONS, WILL CONTINUE TO MONITOR CLOSELY.
[2017-09-30] VITALS (8 sets, daily range): BP systolic 104–167; BP diastolic 55–86
[2017-09-30] MEDS: IV D5W 1,000 ML IV PRN ×2 (06:04→17:21)
--- NOTE | 2017-09-30 06:43 | NUR ---
CONE MACHINE OPERATOR CLOSING NOTES, PATIENT AWAKE AT THIS TIME, BREATHING EVEN AND UNLABORED NO S/S OF PAIN OR DISCOMFORT NOTED AT THIS TIME, AFIB IN THE TELE MONITOR, MELIA MIDLINE PATENT AND INTACT, IVF INFUSING WELL AND PATIENT TOLERATING WELL, CONTINUE NPO AT THIS TIME, NO SIGNIFICANT CHANGE IN CONDITION DURING THIS SHIFT, ALL NEEDS PROVIDED, WILL ENDORSE CONTINUITY OF CARE TO ONCOMING NURSE. ,
[2017-09-30] MEDS: INSULIN REGULAR, HUMAN 100 UNIT/ML 3 ML VIAL SQ PRN ×4 (07:30→21:24)
[2017-09-30] MEDS: LEVOTHYROXINE SODIUM 75 MCG TABLET PO SCH (07:30)
[2017-09-30] MEDS: BLOOD SUGAR DIAGNOSTIC 1 EACH STRIP IN SCH ×4 (07:33→21:24)
[2017-09-30] MEDS: ASPIRIN 81 MG TAB.CHEW PO SCH (09:00)
[2017-09-30] MEDS ORDERED: Z GUARD REMEDY 2 OZ OINT TP PRN (09:00)
[2017-09-30] MEDS: HEPARIN SODIUM, PORCINE 5000 UNITS/1 ML VIAL SQ SCH ×3 (09:00→21:08)
--- NOTE | 2017-09-30 09:01 | NUR ---
WOUND CARE CONSULT: PT PRESENTS WITH SACRAL SCARRING AND CURRENT LOVELY SCORE OF 11. PT ON LARISA ISOFLEX LOW AIRLOSS BED. ALL SKIN PROTECTION RECOMMENDATIONS DISCUSSED WITH NURSING STAFF. WILL SEE PRN. SANTOS IN AGREEMENT WITH PLAN OF CARE. Addendum: 09/30/17 at 0902 by JANETTE OVALLES WNDNU Amended: Links added.
--- NOTE | 2017-09-30 09:52 | NUR ---
RN NOTES: HEPARIN DC TO BE CLARIFIED WITH DR NEWELL. DOSE HELD FOR NOW
[2017-09-30] MEDS: PANTOPRAZOLE 40 MG VIAL IV SCH (09:57)
[2017-09-30] MEDS: CYANOCOBALAMIN 1,000 MCG/ML VIAL IM SCH (10:01)
[2017-09-30] MEDS: NITROGLYCERIN 30 GM TUBE TP SCH ×2 (11:19→21:01)
--- NOTE | 2017-09-30 11:32 | NUR ---
NITROGLYCERIN PATCH HELD- BP AT 104/55 HR OF 84 NO FACIAL GRIMACING DENYING CHEST PAIN NONLABORED BREATHING NOTED ON ROOM AIR
[2017-09-30 12:17] LABS: PTH, INTACT 122 pg/mL (15-65)
--- NOTE | 2017-09-30 13:46 | NUR ---
DR ASHTON NOTIFIED ALSO THAT PEG PLANS CANCELLED. NO CURRENT PLAN FOR PEG INSERTION DR ASHTON UPDATED REGARDING SWALLOW EVALUATION PER HIS ORDERS, DEFER TO DR NEWELL ABOUT HEPARIN DOSAGE
--- NOTE | 2017-09-30 13:50 | NUR ---
HEPARIN SUBC AM DOSE HELD DUE TO POSSIBLE PLAN OF PEG INSERTION. DR ASHTON NOTIFIED NOTIFIED DR ASHTON THAT PO MEDS HELD DUE TO PATIENT BEING NPO
--- NOTE | 2017-09-30 13:50 | NUR ---
HEPARIN SUBC AM DOSE HELD DUE TO POSSIBLE PLAN OF PEG INSERTION. DR ASHTON NOTIFIED
--- NOTE | 2017-09-30 14:00 | NUR ---
DR ASHTON NOTIFIED THAT PATIENT UNABLE TO TAKE PO MEDS. PER HIS ORDERS, MONITOR AND ASSESS FOR ORAL INTAKE TODAY OK TO SWITCH TO SYNTHROID IV IF PATIENT UNABLE TO SWALLOW BY TOMORROW VERBAL READBACK DONE
[2017-09-30] MEDS: DIGOXIN INJ 0.5 MG/2 ML AMPUL IV SCH (14:02)
--- NOTE | 2017-09-30 14:09 | NUR ---
PER DR ASHTON - ESOPHAGRAM
--- NOTE | 2017-09-30 14:20 | NUR ---
PER DR NEWELL, JANA TO CONTINUE GIVING CURRENT PROPHYLAXIS DOSAGE OF HEPARIN VERBAL READBACK DONE
--- NOTE | 2017-09-30 15:00 | NUR ---
TELE DISCONTINUED BY DR NEWELL . ATRIAL FIBRILLATION NOTED THIS AM 75 HR
--- NOTE | 2017-09-30 15:01 | NUR ---
NO ORDERS FROM MD YET TO CONTACT GI FOR POSSIBLE PEG INSERTION
--- NOTE | 2017-09-30 17:08 | NUR ---
NO SIGNS OF ALLERGIC REACTIONS NOTED AFTER ESOPHAGRAM NONLABORED BREATHING NOTED. NO FACIAL GRIMACING NOTED DENYING PAIN AT THE MOMENT
[2017-09-30] MEDS: Z GUARD REMEDY 2 OZ OINT TP SCH (17:21)
--- NOTE | 2017-09-30 18:13 | NUR ---
DR ASHTON NOTIFIED OF ESOPHAGRAM RESULTS PER DR ASHTON, CLEAR LIQUID DIET VERBAL READBACK DONE
--- NOTE | 2017-09-30 19:40 | NUR ---
RN CLOSING NOTES: PATIENT RESTING IN BED.NONLABORED BREATHING NOTED ON ROOM 2L NASAL CANNULA. NO NEUROLOGICAL CHANGES SINCE AM REPORT- CHECK NIH SCALE AND FLOWSHEET MIDLINE ON RIGHT UPPER ARM PATENT AND INTACT WITH CURRENT FLUIDS RUNNING. PATIENT OFFERED CLEAR LIQUID DIET PER ORDERS. NO SIGNS OF ASPIRATION NOTED. SON AT BEDSIDE AND EDUCATED REGARDING REFLUX ASPIRATION AND ASPIRATION PRECAUTIONS. EDUCATED ON CURRENT CLEAR LIQUID DIET. VERBALIZED UNDERSTANDING ALSO, DR ASHTON AND DR ZIMMERMAN AWARE OF CURRENT B12 DOSE GIVEN ENDORSE TO TERRY IVERSON
--- NOTE | 2017-09-30 19:55 | NUR ---
1954: Assisted patient with eating. HOB elevated at 45 degrees for aspiration precaution. Ate 1 cup of jello slowly, noted with coughing when given juice. Son at bedside and aware of patient not tolerating juice. DARIO Ward and ZAYRA Sanchez made made aware of pt. not tolerating juice.
--- NOTE | 2017-09-30 21:40 | NUR ---
RN NOTES HUMALOG NOT ADMINISTERED FOR 22:00 BECAUSE OF POOR P.O. INTAKE. WILL CONTINUE TO FOLLOW UP
[2017-09-30] MEDS: ATORVASTATIN 10 MG TABLET PO SCH (21:42)
--- NOTE | 2017-09-30 21:46 | NUR ---
RN NOTES HELD ATROVASTATIN. UNABLE TO TOLERATE WHOLE PILL OR CRUSHED MEDS(PUREED).
[2017-10-01] VITALS (8 sets, daily range): BP systolic 95–129; BP diastolic 40–79
[2017-10-01] MEDS: IV D5W 1,000 ML IV PRN ×2 (00:05→17:24)
[2017-10-01 06:43] LABS: BASOPHILS % (AUTO) 0.7 % (0.0-2.0); EOSINOPHILS % (AUTO) 1.5 % (0.0-6.0); HEMATOCRIT 34 % (33-45); HEMOGLOBIN 11.5 g/dL (11.5-14.8); LYMPHOCYTES # (AUTO) 3.9 /CMM (0.8-4.8); LYMPHOCYTES % (AUTO) 72.2 % (20.0-44.0); MEAN CORPUSCULAR HEMOGLOBIN 30 PG (26.0-33.0); MEAN CORPUSCULAR HGB CONC 34 g/dl (31.0-36.0); MEAN CORPUSCULAR VOLUME 88 fL (82-100); MONOCYTES # (AUTO) 0.2 /CMM (0.1-1.30); MONOCYTES % (AUTO) 3.4 % (2.0-12.0); NEUTROPHILS # (AUTO) 1.2 /CMM (1.8-8.9); NEUTROPHILS % (AUTO) 22.2 % (43.0-81.0); PLATELET COUNT (AUTO) 152 /CMM (150-450); RDW COEFFICIENT OF VARIATION 18.2 (11.5-15.0); RED BLOOD CELL COUNT(AUTO) 3.87 MIL/uL (4.0-5.2); WHITE BLOOD COUNT (AUTO) 5.4 K/uL (4.3-11.0)
[2017-10-01 06:45] LABS: CALCIUM, SERUM 8.7 mg/dL (8.5-10.1); CARBON DIOXIDE 25 mmol/L (21-32); CHLORIDE 101 mmol/L (98-107); CREATININE 1.1 mg/dL (0.6-1.3); GLUCOSE 124 mg/dL (74-106); POTASSIUM 4.7 mmol/L (3.5-5.1); SODIUM SERUM 132 mmol/L (136-145); UREA NITROGEN, BLOOD 21 mg/dL (7-18)
[2017-10-01] MEDS: LEVOTHYROXINE SODIUM 75 MCG TABLET PO SCH (07:30)
--- NOTE | 2017-10-01 07:30 | NUR ---
RN MS INITIAL NOTES RECEIVED REPORT AND PT FROM PM NURSE. PT RESTING IN BED, NO S/S OF DISTRESS OR SOB, A&O X 2-3 CONFUSED AT TIMES, FILIPINO SPEAKING, ON 2L NC SAT ABOVE 97%, KUNZ CATH DRAINING URINE VIA GRAVITY. RT UPPER MIDLINE RUNNING D5W @ 60ML/HR NO INFILTRATION NOTED. ALL SAFETY MEASURES INITIATED, SIDE RAILS X2, BED LOW AND LOCKED, CALL LIGHT WITHIN REACH, WILL CONTINUE TO MONITOR.
[2017-10-01] MEDS: NITROGLYCERIN 30 GM TUBE TP SCH ×2 (08:49→21:37)
[2017-10-01] MEDS: ASPIRIN 81 MG TAB.CHEW PO SCH (08:52)
[2017-10-01] MEDS: CYANOCOBALAMIN 1,000 MCG/ML VIAL IM SCH ×2 (08:52→09:55)
[2017-10-01] MEDS: PANTOPRAZOLE 40 MG VIAL IV SCH (09:27)
[2017-10-01] MEDS: BLOOD SUGAR DIAGNOSTIC 1 EACH STRIP IN SCH ×4 (09:27→21:36)
[2017-10-01] MEDS: HEPARIN SODIUM, PORCINE 5000 UNITS/1 ML VIAL SQ SCH ×2 (09:31→21:41)
[2017-10-01] MEDS: INSULIN REGULAR, HUMAN 100 UNIT/ML 3 ML VIAL SQ PRN ×2 (09:32→12:55)
[2017-10-01] MEDS: Z GUARD REMEDY 2 OZ OINT TP SCH (09:36)
[2017-10-01] MEDS: DIGOXIN INJ 0.5 MG/2 ML AMPUL IV SCH (13:00)
--- NOTE | 2017-10-01 15:05 | NUR ---
RN MS NOTES PTS HR IN HIGH 50'S HIGHEST 61, MONITORED FOR HALF HOUR AND HEART RATE LOW END 60'S, MOSTLY IN 50'S.
--- NOTE | 2017-10-01 18:31 | NUR ---
RN MS NOTES PT STABLE WITH NO ACUTE CHANGES NOTED, PTS BG 107 AFTER RECHECKED, OFFERED SOME FOOD, ATE FEW BITES NOT MUCH APPETITE, ALL NEEDS MET, ALL SAFETY MEASURES INITIATED, IV SITE INTACT AND PATENT NO INFILTRATION NOTED, WILL CONTINUE CARE AND MONITOR.
--- NOTE | 2017-10-01 20:13 | NUR ---
RN MS INITIAL NOTES RECEIVED REPORT PT RESTING IN BED, NO S/S OF DISTRESS OR SOB, A&O X 2-3 CONFUSED AT TIMES, KOREAN SPEAKING, ON 2L NC SAT ABOVE 97%, KUNZ CATH DRAINING URINE VIA GRAVITY. RT UPPER MIDLINE RUNNING D5W @ 60ML/HR NO INFILTRATION NOTED. ALL SAFETY MEASURES INITIATED, SIDE RAILS X2, BED LOW AND LOCKED, CALL LIGHT WITHIN REACH, WILL CONTINUE TO MONITOR.
[2017-10-01] MEDS: ATORVASTATIN 10 MG TABLET PO SCH (21:36)
[2017-10-02 04:00] VITALS: BP 119/52
--- NOTE | 2017-10-02 06:16 | NUR ---
RN MS CLOSING NOTES ENDORSED REPORT PT RESTING IN BED, NO S/S OF DISTRESS OR SOB, A&O X 2-3 CONFUSED AT TIMES, KYRGYZ SPEAKING, ON 2L NC SAT ABOVE 97%, KUNZ CATH DRAINING URINE VIA GRAVITY. RT UPPER MIDLINE RUNNING D5W @ 60ML/HR NO INFILTRATION NOTED. ALL SAFETY MEASURES INITIATED, SIDE RAILS X2, BED LOW AND LOCKED, CALL LIGHT WITHIN REACH, WILL CONTINUE TO MONITOR.
[2017-10-02 06:51] VITALS: BP 119/52
[2017-10-02 06:59] LABS: BASOPHILS % (AUTO) 0.4 % (0.0-2.0); EOSINOPHILS % (AUTO) 1.9 % (0.0-6.0); HEMATOCRIT 31 % (33-45); HEMOGLOBIN 10.7 g/dL (11.5-14.8); LYMPHOCYTES # (AUTO) 1.1 /CMM (0.8-4.8); LYMPHOCYTES % (AUTO) 45.5 % (20.0-44.0); MEAN CORPUSCULAR HEMOGLOBIN 30 PG (26.0-33.0); MEAN CORPUSCULAR HGB CONC 35 g/dl (31.0-36.0); MEAN CORPUSCULAR VOLUME 86 fL (82-100); MONOCYTES % (AUTO) 1.5 % (2.0-12.0); NEUTROPHILS # (AUTO) 1.2 /CMM (1.8-8.9); NEUTROPHILS % (AUTO) 50.7 % (43.0-81.0); PLATELET COUNT (AUTO) 168 /CMM (150-450); RDW COEFFICIENT OF VARIATION 18.2 (11.5-15.0); RED BLOOD CELL COUNT(AUTO) 3.56 MIL/uL (4.0-5.2); WHITE BLOOD COUNT (AUTO) 2.3 K/uL (4.3-11.0)
[2017-10-02 07:21] LABS: CALCIUM, SERUM 8.6 mg/dL (8.5-10.1); CARBON DIOXIDE 26 mmol/L (21-32); CHLORIDE 100 mmol/L (98-107); CREATININE 1.1 mg/dL (0.6-1.3); GLUCOSE 142 mg/dL (74-106); POTASSIUM 4.2 mmol/L (3.5-5.1); SODIUM SERUM 133 mmol/L (136-145); UREA NITROGEN, BLOOD 16 mg/dL (7-18)
[2017-10-02] MEDS ORDERED: LEVOTHYROXINE INJ 100 MCG VIAL IV SCH (07:30)
[2017-10-02 07:47] LABS: BAND % (MANUAL) 2 % (0.0-5.0); EOSINOPHILS % (MANUAL) 2 % (0-4); LYMPHOCYTES % (MANUAL) 46 % (16-48); MONOCYTES % (MANUAL) 3 % (0-11.0); NEUTROPHILS % (MANUAL) 47 (42-76)
[2017-10-02 08:00] VITALS: BP 125/60
--- NOTE | 2017-10-02 08:00 | NUR ---
MS RN AM NOTES RECEIVED PT RESTING IN BED, NO S/S OF DISTRESS OR SOB, A&O X 2-3 CONFUSED AT TIMES, ZIMBABWEAN SPEAKING, ON 2L NC SAT ABOVE 98%, KUNZ CATH DRAINING CLEAR URINE VIA GRAVITY. RT UPPER MIDLINE RUNNING D5W @ 60ML/HR INFUSING WELL NO INFILTRATION NOTED. RESUMED REVERSE ISOLATION PRECAUTIONS DUE TO LOW WBC OF 2.3.ISOLATION PRECAUTIONS OBSERVED.ALL SAFETY MEASURES INITIATED, SIDE RAILS X2, BED LOW AND LOCKED, CALL LIGHT WITHIN REACH, WILL CONTINUE TO MONITOR.
[2017-10-02] MEDS: INSULIN REGULAR, HUMAN 100 UNIT/ML 3 ML VIAL SQ PRN ×3 (08:22→18:25)
[2017-10-02] MEDS: HEPARIN SODIUM, PORCINE 5000 UNITS/1 ML VIAL SQ SCH (08:24)
[2017-10-02] MEDS: PANTOPRAZOLE 40 MG VIAL IV SCH (08:26)
[2017-10-02] MEDS: BLOOD SUGAR DIAGNOSTIC 1 EACH STRIP IN SCH ×3 (08:26→18:23)
[2017-10-02] MEDS: CYANOCOBALAMIN 1,000 MCG/ML VIAL IM SCH (08:26)
[2017-10-02] MEDS: ASPIRIN 81 MG TAB.CHEW PO SCH (08:26)
[2017-10-02] MEDS: Z GUARD REMEDY 2 OZ OINT TP SCH (08:28)
[2017-10-02] MEDS: NITROGLYCERIN 30 GM TUBE TP SCH (08:29)
[2017-10-02] MEDS: ENSURE ENLIVE CHOC 237 ML CAN PO SCH ×2 (08:41→12:03)
[2017-10-02] MEDS: DIGOXIN INJ 0.5 MG/2 ML AMPUL IV SCH (12:03)
[2017-10-02] MEDS ORDERED: CYAN10006 IM (13:14)
[2017-10-02] MEDS ORDERED: DIGO250A9 IV (13:14)
[2017-10-02] MEDS ORDERED: INSU100V28 SQ (13:14)
[2017-10-02] MEDS ORDERED: LEVOTHYROXINE IV (13:14)
[2017-10-02] MEDS ORDERED: HEPA50008 SQ (13:14)
[2017-10-02] MEDS ORDERED: ATOR10TA PO (13:14)
[2017-10-02] MEDS ORDERED: HYDR20VI4 IV (13:14)
[2017-10-02 16:00] VITALS: BP 111/49
[2017-10-02] MEDS ORDERED: GLUCERNA SHAKE 237 ML CAN PO SCH (17:00)
--- NOTE | 2017-10-02 18:00 | NUR ---
PT RESTING IN BED WITH PENDING DISCHARGE DUE TO SNF PLACEMENT OF CHOICE OF THE FAMILY.LOCKSTITCH TUNNEL ELASTIC OPERATOR ARRANGING WITH FAMILY'S SNF OF CHOICE ACCORDING TO PT'S [employer] INSURANCE.
[2017-10-02 20:00] VITALS: BP 115/70
--- NOTE | 2017-10-02 20:15 | NUR ---
MS/RN NOTES PATIENT DISCHARGE TO [facility], REPORT GIVEN TO RN PAULINO AT [phone], FAMILY MADE AWARE, MILL ROLL REWINDER , TRANSPORTATION ARRIVED WITH JANINE. 2 EMT ARRIVED. PHOTO OF SACRAL WOUND, DISCOLORATION AND REDNESS ON ELBOW TAKEN, RIGHT UPPER MIDLINE SITE REMOVED, AND MONITORING WITH NO BLEEDING. PATIENT FORGETFUL, FAMILY INVOLVED, EXTENSIVE ASSISTANCE NEEDED.B/P 115/70, T-98.4, HR-71, R-18, O2SAT AT 100%. NO GUARDING AND NO GRIMACE OBSERVED.
== END 2017-10-02 20:30 | DRG 139 ==
LOC: ER 16:41 → TELE1 20:01 → TELE-TD 20:36 → TELE1 09-22 08:06 → MEDSG1 09-23 09:42 → TELE1 09-26 12:23 → ICU 09-26 16:34 → TELE1 09-28 06:09 → MEDSG1 09-30 19:15
PROVIDERS: ADMIT Nurse Practitioner Acute Care; ATTEND Nurse Practitioner Acute Care
DX: J15.9 Unspecified bacterial pneumonia (principal); I21.A1 Myocardial infarction type 2; I63.521 Cerebral infarction due to unspecified occlusion or stenosis of right anterior cerebral artery; J96.01 Acute respiratory failure with hypoxia; N17.0 Acute kidney failure with tubular necrosis; J90 Pleural effusion, not elsewhere classified; D61.818 Other pancytopenia; D68.59 Other primary thrombophilia; E87.1 Hypo-osmolality and hyponatremia; G20 Parkinson's disease; E44.1 Mild protein-calorie malnutrition; Z86.73 Personal history of transient ischemic attack (TIA), and cerebral infarction without residual deficits; E03.9 Hypothyroidism, unspecified; E78.5 Hyperlipidemia, unspecified; I25.10 Atherosclerotic heart disease of native coronary artery without angina pectoris; I48.91 Unspecified atrial fibrillation; R91.1 Solitary pulmonary nodule; E88.09 Other disorders of plasma-protein metabolism, not elsewhere classified; Z68.25 Body mass index [BMI] 25.0-25.9, adult; R73.9 Hyperglycemia, unspecified; E80.6 Other disorders of bilirubin metabolism; D72.825 Bandemia; I25.2 Old myocardial infarction; R13.10 Dysphagia, unspecified; E53.8 Deficiency of other specified B group vitamins; J98.11 Atelectasis; I10 Essential (primary) hypertension
CPT/HCPCS: 36415; 36569; 36600; 70450-TC; 71045-TC; 71250-TC; 74230-TC; 76604-TC; 76942-TC; 80048-TC; 80053-TC; 80061-TC; 80076-TC; 81000-TC; 82306; 82550-TC; 82570-TC; 82728-TC; 82746; 82784; 82803-TC; 82962-TC; 83540-TC; 83605-TC; 83615-TC; 83735-TC; 83880; 83970; 84100-TC; 84155; 84155-TC; 84165; 84300-TC; 84439-TC; 84443-TC; 84484-TC; 85025-TC; 85045-TC; 85610-TC; 85730-TC; 86140-TC; 86334; 87040-TC; 87070-TC; 87081-TC; 88305-TC; 88312-TC; 89051-TC; 92521; 92526; 93307-TC; 93880-TC; 93970-TC; 97110-TC; 97112-TC; 97116-TC; 97530-TC; A4216; A4606; C9113; J0282; J0456; J0696; J1160; J1644; J1650; J1815; J1940; J1953; J2270; J2405; J3420; J3490; J7030; J7040; J7050; J7060; J7070; Z7610